=== PATIENT | female | born 1940 | race Caucasian/White ===

== ENCOUNTER → 2018-11-07 05:00 | Outpatient (REF) | payer MEDICARE, SELFPAY ==
[2018-11-07 09:01] LABS: Hematocrit 41.5 % (37-47); Hemoglobin 13.5 g/dl (12.0-15.0); Mean Corp Hgb Conc 32.5 g/gl (32-36); Mean Corpuscular Hgb 28.9 pg (27.0-32.0); Mean Corpuscular Volume 88.9 fL (81-99); Mean Platelet Vol. 10.4 fl (6.2-12.0); Platelet Count 247 K/mm3 (150-450); RBC Distribution Width CV 15.9 % (11.6-14.6); RBC Distribution Width SD 51.6 fl (35.1-43.9); Red Blood Count 4.67 M/mm3 (4.2-5.4); White Blood Count 8.5 K/mm3 (4.4-11.0)
[2018-11-07 09:03] LABS: Scan Indicated on CBC? Y/N NO
[2018-11-07 09:17] LABS: BUN 30 mg/dL (7-18); Creatinine, Serum 0.89 mg/dL (0.55-1.02); Glucose 99 mg/dL (74-106)
[2018-11-07 09:18] LABS: Anion Gap 6 (5-15); BUN/Creat Ratio 33.6 RATIO (10-20); Calcium,Total 8.9 mg/dL (8.5-10.1); Chloride 103 mmol/L (98-107); EST Glomerular Filtration Rate 65 mL/min (>60); Est Glom Filt Rate - Afr Amer 78 mL/min (>60); Ferritin 77 ng/mL (8-252); Potassium 4.6 mmol/L (3.5-5.1); Sodium Level 140 mmol/L (136-145)
== END ==
LOC: OLS.ACW200 05:00
PROVIDERS: Visit Provider Internal Medicine
DX: L03.114 Cellulitis of left upper limb (principal); M62.81 Muscle weakness (generalized); I10 Essential (primary) hypertension; F33.1 Major depressive disorder, recurrent, moderate; M12.9 Arthropathy, unspecified
CPT/HCPCS: 36415; 80048; 82728; 85027

== ENCOUNTER → 2018-12-18 02:00 | Outpatient (REF) | payer MEDICARE, SELFPAY ==
[2018-12-18 09:04] LABS: Color, Urine Yellow (Yellow); Glucose, Dipstick Normal (Normal); Ketone-Dipstick Negative (Negative); Leukocyte Esterase-Dipstick 500 /ul (Negative); Nitrite-Dipstick Positive (Negative); Occult Blood-Urine 250 /ul (Negative); Protein-Dipstick 100 mg/dl (Negative); Specific Gravity, Urine 1.015 (1.002-1.030); Urine Bilirubin Dipstick Negative (Negative); Urine Clarity Cloudy (Clear); Urine Urobilinogen 1 mg/dl (Normal)
--- OUTSIDE RECORDS SUMMARY | 2019-02-19 04:57 | XMS RPT_ITS ---
:1940 Author Organization [place] Care Team Providers Name Role Phone SHANNON SELLERS (RES) Admitting Unavailable SHANNON SELLERS (RES) Attending Unavailable ROMAN PERALTA Consulting Unavailable Yosef Macias Attending Unavailable Yosef Macias Attending Unavailable PROBLEMS PROBLEMS DATE TYPE CONDITION / CODE ATTENDING STATUS SOURCE 12/09/2018 Unknown L03.114 - Cellulitis Spoljaric, Active Abhishek of left upper limb / [facility] L03.114(ICD-10) Hospital Repository 12/09/2018 Unknown M62.81 - Muscle Spoljaric, Active [place] weakness [facility] (generalized) / Hospital M62.81(ICD-10) Repository 12/09/2018 Unknown I10 - Essential Spoljaric, Active Abhishek (primary) [facility] hypertension / Hospital I10(ICD-10) Repository 12/09/2018 Unknown M15.0 - Primary Spoljaric, Active [place] generalized [facility] (osteo)arthritis / Hospital M15.0(ICD-10) Repository 12/09/2018 Unknown F33.1 - Major Spoljaric, Active [place] depressive disorder, [facility] recurrent, moderate Hospital / F33.1(ICD-10) Repository 12/09/2018 Unknown M12.9 - Arthropathy, Spoljaric, Active Abhishek unspecified / [facility] M12.9(ICD-10) Hospital Repository 08/25/2018 Active Pain in left wrist / ANTONIA, Active [facility] M25.532(ICD-10) [facility] (RES) [facility] Other [place] Rep[facility] 08/25/2018 Active Effusion, left wrist ANTONIA, Active [facility] / M25.432(ICD-10) [facility] (RES) [facility] Other [place] Rep[facility] 08/25/2018 Active Essential (primary) ANTONIA, Active [facility] hypertension / [facility] (RES) [facility] Other I10(ICD-10) [place] [facility] Rep[facility] 08/25/2018 Active Disorientation, ANTONIA, Active [place] unspecified / [facility] (RES) Clinic Other R41.0(ICD-10) [place] Rep[facility] 08/25/2018 Active Other malaise / ANTONIA, Active [place] R53.81(ICD-10) [facility] (RES) [facility] Other [place] Repository 08/25/2018 Active Cellulitis of left ANTONIA, Active [place] upper limb / [facility] (RES) Clinic Other L03.114(ICD-10) [place] Repository 08/24/2018 Active Urge incontinence / ANTONIA, Active [place] N39.41(ICD-10) [facility] (RES) Clinic Other [place] Rep[facility] 08/24/2018 Active Bilateral primary ANTONIA, Active [place] osteoarthritis of [facility] (RES) Clinic Other knee / M17.0(ICD-10) [place] [facility] Rep[facility] 08/21/2018 Active Other general ANTONIA, Active Scal[place] symptoms and signs / [facility] (RES) Clinic Other R68.89(ICD-10) [place] [facility] Rep[facility] 08/21/2018 Active Acute cystitis ANTONIA, Active Scal[place] without hematuria / [facility] (RES) Clinic Other N30.00(ICD-10) [place] Repository PROCEDURES PROCEDURES No Procedure Records FoundRESULTS RESULTS URINALYSIS, ROUTINE Collected: 12/18/2018 Status: F Source: ABH[place]HEK (DIPSTICK) 2:00 AM [facility] REPOSITORY Order Comment: How was Urine Obtained? CLEAN CATCH TYPE CODE TESTS RESULT OUT OF RANGE REFERENCE UNITS LAB L400.3000 Yellow COLOR Normal Yellow LAB L400.3050 Clear Normal CLARITY Cloudy LAB L400.3200 Normal mg/dl Normal GLUCOSE, UR Normal LAB L400.3300 Negative mg/dL Normal BILIRUBIN URINE Negative LAB L400.3400 Negative mg/dl Normal KETONE UR Negative LAB L400.3465 1.002-1.030 Normal SP.GR. DIPSTX 1.015 LAB L400.3550 5.0 - 8.0 pH UR Normal 8.0 LAB L400.3600 Negative mg/dl High PROT DIPSTX 100 LAB L400.3700 Normal mg/dl High 1 UROBILI LAB L400.3750 Negative High NITRITE UR Positive LAB L400.3780 Negative /ul High OCCULT BLOOD-UR 250 LAB L400.3800 Negative /ul High LEUK ESTERASE 500 Performed By: #### L400.2011 #### [facility] [address] [place], [place], [address] Observed: 12/18/2018 Status: F Source: ABH[place] CULTURE, URINE 2:00 AM [facility] REPOSITORY Urine Culture ORGANISM 1: Mixed Gram Pos AND Gram Neg Org [place] Count 50,000-80,000 MIX CULTURE Mixed contaminants. Submit a new specimen if indicated. Performed By: #### M100.0650 #### [facility] [address] [facility] [place], [address] CBC-COMPLETE BLOOD CNT Collected: 11/07/2018 Status: F Source: [place] NO DIFF 7:25 AM [facility] REPOSITORY Order Comment: 210-2 TYPE CODE TESTS RESULT OUT OF RANGE REFERENCE UNITS LAB L100.1000 4.4-11.0 K/mm3 Normal WBC 8.5 LAB L100.1200 4.2-5.4 M/mm3 Normal RBC 4.67 LAB L100.1300 12.0-15.0 g/dl Normal HGB 13.5 LAB L100.1400 37-47 % Normal HCT 41.5 LAB L100.1500 81-99 fL Normal MCV 88.9 LAB L100.1600 27.0-32.0 pg Normal MCH 28.9 LAB L100.1700 32-36 g/gl Normal MCHC 32.5 LAB L100.1810 11.6-14.6 % High RDW CV 15.9 LAB L100.1820 35.1-43.9 fl High RDW SD 51.6 LAB L100.1900 150-450 K/mm3 Normal PLT 247 LAB L100.2000 6.2-12.0 fl Normal MPV 10.4 Performed By: #### L100.0500 #### [facility] [address] [facility] [place], [place], [address] BASIC METABOLIC Collected: 11/07/2018 Status: F Source: ABHIS[place] PROFILE (BMP) 7:25 AM [facility] REPOSITORY Order Comment: 210-2 TYPE CODE TESTS RESULT OUT OF RANGE REFERENCE UNITS LAB L501.0100 74-106 mg/dL Normal GLU 99 Result Comment: Please note revised GLUCOSE reference range effective 2017. LAB L501.1000 7-18 mg/dL High BUN 30 LAB L501.1100 0.55-1.02 mg/dL Normal CREAT,SERUM 0.89 Result Comment: The validity of the calculated GFR AND GFRAA in patients over 70 years has not been determined. Clinical correlation is essential. LAB L501.1110 >60 mL/min Normal EST GFR 65 Result Comment: Non- GFR Calc LAB L501.1115 >60 mL/min Normal EST GFR - AA 78 Result Comment: GFR Calc LAB L501.1300 10-20 RATIO High BUN/CRE 33.6 LAB L501.2200 8.5-10.1 mg/dL CA Normal 8.9 LAB L501.5300 136-145 mmol/L NA Normal 140 LAB L501.5600 3.5-5.1 mmol/L K Normal 4.6 LAB L501.5900 98-107 mmol/L CL Normal 103 LAB L501.6100 21.0-32.0 mmol/L Normal CO2 31.0 LAB L501.6200 5-15 Normal GAP 6 Performed By: #### L500.2500, L503.6550 #### [facility] [address] [facility] [place], [address] FERRITIN Collected: 11/07/2018 Status: F Source: [place] 7:25 AM [facility] REPOSITORY Order Comment: 210-2 TYPE CODE TESTS RESULT OUT OF RANGE REFERENCE UNITS LAB L503.6550 8-252 ng/mL Normal FERRITIN 77 Performed By: #### L500.2500, L503.6550 #### [facility] [address] [facility] [place], [address] CNCO Observed: 08/30/2018 Status: COMPLETED Source: [place] 12:00 AM CLINIC OTHER CAMPUS REPOSITORY Letter Text August 30, 2018 Shola Castaneda [address] [facility] [address] Dear Ms. Castaneda, Thank you for choosing [facility] for your medical care. To help reduce healthcare costs, it is important for us to collect co-payments at the time of service. We are sorry we missed you when you were here on 08/21/2018. According to your insurance company, you are responsible for a co-payment of $1750.00. Please mail your check or money order, payable to [facility] along with the stub below, in the enclosed envelope. If you would like to pay with your credit card, please call [phone] for assistance. Again, thank you for choosing [facility]. Sincerely, Akira Reaves Patient Occupational Therapy Department Chair Please detach and return in the enclosed envelope. Patient Name: Shola Castaneda EMPI Number: [id number] Date of Service: 08/21/2018 Co-Pay Due: $1750.00 Amount Enclosed: $ .__ Please make checks payable to [facility]. NURSING PROG Observed: 08/26/2018 Status: COMPLETED Source: [place] 7:45 PM CLINIC OTHER CAMPUS REPOSITORY O ID: [id number] Author: Luzma (Rn) MARCEL Guerrero Service: Nursing Author Type: Registered Nurse Type: Nursing Progress Note Filed: 08/26/2018 9:12 PM Note Text: Nursing Progress Note Patient Name: Shola Castaneda Patient Location[facility]/[id number] 1944- pt to be transferred to [facility]. Transport here to p/u pt. Pt confused/agitated, refusing transport, states no- one can make her leave attempts to reason with pt unsuccessful, states she wants to go home and make an appointment with doctor she saw yesterday, shows card with Dr Fisher name. Hospitalist/NOM, ANM, notified of pt refusal for transport. Called Daughter, ginna, pt hangs up on her, states she was swearing at her. Dr Whalen at bedside, attempts to reason with pt , unsuccessful. Pt eventually agrees to transport. Left unit at 2054 via cart with personal. Daughter and Dr Fisher notified. This note was completed by: Luzma Guerrero RN NURSING PROG Observed: 08/26/2018 Status: COMPLETED Source: [place] 7:32 PM [facility] REPOSITORY HNO ID: [id number] Author: Constanza Azar (Rn) MARCEL Andrews Service: (none) Author Type: Registered Nurse Type: Nursing Progress Note Filed: 08/26/2018 7:35 PM Note Text: Nursing Progress Note Patient Name: Shola Castaneda Patient Location: [place] [address]/[id number] Daily Note: 1914 Ginna daughter updated regarding [facility] Transportation pick-up now scheduled for 1944 per [facility]. 193 Pt. Having high anxiety and expressing she is anxious over leaving late to go to [facility]. This note was completed by: Constanza Andrews RN THERAPY NT Observed: 08/26/2018 Status: COMPLETED Source: [place] 3:03 PM [facility] REPOSITORY HNO ID: [id number] Author: Ashley (Pt) Cuauhtemoc Service: Physical Therapy Author Type: Physical Therapist Type: Therapy (PT/OT/Speech/Resp) Filed: 08/26/2018 3:03 PM Note Text: PHYSICAL THERAPY MISSED VISIT SERVICE DATE: 08/26/2018 SERVICE TIME: 1502 to 1502 ROOM: [place] [address] Attempted Treatment. Patient not seen due to (active discharge orders). Will re-attempt if discharge planning changes. SIGNATURE: Ashley Posadas, PT PATIENT NAME: Shola Castaneda DATE: August 26, 2018 TIME: 3:03 PM NURSING PROG Observed: 08/26/2018 Status: COMPLETED Source: [place] 2:03 PM [facility] REPOSITORY HNO ID: [id number] Author: Constanza Jaramillo) MARCEL Andrews Service: (none) Author Type: Registered Nurse Type: Nursing Progress Note Filed: 08/26/2018 2:50 PM Note Text: Nursing Progress Note Patient Name: Shola Castaneda Patient Location: [place] [address]/[id number] Daily Note: 1402 Update given to daughter regarding approximate time for discharge. Transportation set for 5 pm today. 1450 Attempted to call report called to Jillian RN, but unable to reach. [place] stated RN will be back in approx. 15 min. Will call back. This note was completed by: Constanza Andrews RN CASE MANAGEM Observed: 08/26/2018 Status: COMPLETED Source: [place] 11:35 AM [facility] REPOSITORY HNO ID: [id number] Author: Rosa Gomez (Sw) Service: Care Management Author Type: Corn Popper Type: Care Mgt Progress Note Filed: 08/26/2018 11:59 AM Note Text: CARE MANAGEMENT DISCHARGE NOTE SERVICE DATE: 08/26/2018 SERVICE TIME: 11:36 AM LOS: 4 days Admission Date: 08/21/2018 DISCHARGE ARRANGEMENT (list agency and phone number) [facility] facility: Was an expedited discharge program used? No Provider: Jillian CAREGIVER ASSESSMENT: Caregiver is ready, willing and able to meet the patient's needs as recommended by the inter-professional team? Yes Patient's transition needs and plan for meeting these needs: Pt d/c to SNF where her needs will be met. Does the patient have an acute stroke diagnosis, or has the patient had a stroke during this admission? No HANDOFF COMMUNICATION: Primary Care Physician: Jerry Mclaughlin TRANSPORTATION ARRANGEMENTS: Mode of Transportation: Ambulance Transportation Agency and Phone #: [facility] ambulance ( [facility] ) [phone] / [phone]. Date of Trip: 08/26/2018 Type of Service: BLS Non-emergency Is Patient Medicaid Pending: No Discussion of financial coverage occurred with POA and Family . Sod Cutter Location: [facility], 2S, 217-2 Destination: [facility] Financial Care Management Responsibility: None Estimated Charge: n/a Approving Copper Plater: n/a ADDITIONAL CONTACT RESOURCES: n/a D/c orders received for pt to d/c to SNF. Pt has been accepted at [facility]. Sw spoke with pt's dtr, Ginna, who is agreeable with d/c. Transportation arranged via [facility] ambulance at 5pm. IM letter explained and copy given to pt. No additional identified skilled needs nor questions at this time. Summary of care sent to PCP and SNF via [employer]. SIGNATURE: DANUTA Singh, DIRECTOR SOCIAL WELFARE PATIENT NAME: Shola Castaneda DATE: August 26, 2018 TIME: 11:35 AM PAGER/CONTACT #: [phone] CONSULT PROG Observed: 08/26/2018 Status: COMPLETED Source: [place] 11:03 AM CLINIC OTHER CAMPUS REPOSITORY HNO ID: [id number] Author: Juan Christianson MD Service: Infectious Disease Author Type: Physician Type: Consult Progress Note Filed: 08/26/2018 11:04 AM Note Text: INFECTIOUS DISEASE PROGRESS NOTE Patient Name: Shola Castaneda INTERVAL HISTORY: AF>24 hrs, Tmax 99F. Pain is better. No new complaints. Stable on PO Omnicef. ROS checked in details. All qs answered. Patient Active Hospital Problem List: Cellulitis of left hand (08/21/2018) Essential hypertension (08/21/2018) Debility (08/21/2018) Delirium (08/24/2018) ASSESSMENT: 1. Leukocytosis, likely due to #2 and #3. 2. 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 Normal uric acid does not exclude acute gouty arthritis. She does not have any signs of infection. 3. Suspected recurrent urinary tract infection based on the UA. Urine cultures are normal urogenital carol ann. 4. Neurogenic bladder and incontinence history for which she has a bladder stimulator, but there is no battery in the stimulator per the daughter. 5. Low-grade fevers, likely due to left wrist inflammatory arthritis. 6. Hypertension. 7. Severe osteoarthritis of the knees and wheelchair-bound. ? RECOMMENDATIONS: 1. Continue Omnicef to be given for 3 more days. 2. Consider trial of empiric steroid short course. 3. Follow counts, temps and cultures MEDICATIONS: reviewed. Current hospital medications: predniSONE 40 mg tab(s) (DELTASONE) 40 mg ORAL DAILY lisinopril 40 mg tab(s) (ZESTRIL, PRINIVIL) 40 mg ORAL DAILY cefdinir 300 mg (OMNICEF) 300 mg ORAL BID hydroCHLOROthiazide 25 mg tab(s) (HYDRODIURIL, ESIDRIX) 25 mg ORAL DAILY amLODIPine 10 mg tab(s) (NORVASC) 10 mg ORAL DAILY mirabegron 50 mg ER 24 hour tablet (MYRBETRIQ) 50 mg ORAL DAILY pantoprazole DR 40 mg tab(s) (PROTONIX) 40 mg ORAL DAILY (6 AM) heparin 5,000 Units injection 5,000 Units SUBCUTANEOUS q 12 H oxyCODONE-acetaminophen 5-325 mg 1-2 tablet (PERCOCET) 1-2 tablet ORAL q 6 H PRN hydrALAZINE 10 mg in NaCl 0.9% 10 mL (APRESOLINE) 10 mg INTRAVENOUS q 6 H PRN PHYSICAL EXAM: Vital signs: BP 153/87 Pulse 84 Temp 37 ?C (98.6 ?F) (Oral) Resp 18 Ht 162.6 cm (5' 4) Wt 90.7 kg (200 lb) SpO2 96% BMI 34.33 kg/m? Temp (48hrs), Av.9 ?C (98.5 ?F), Min:36.7 ?C (98.1 ?F), Max:37.2 ?C (99 ?F) General: alert, oriented, NAD Lungs: bilaterally clear to auscultation Heart: regular rate and rhythm Abdomen: soft, non tender, non distended, BS+ Extremities: no edema Left wrist and hand, there is mild tenderness on range of motion of the left wrist, but there is minimal erythema and warmth at the site which was marked on admission. No obvious wounds or skin breakdown. No swollen joints No rashes No joint inflammation Neck supple Lines ok No CVAT Labs: Recent Labs 08/26/18 0412 08/25/18 0507 08/24/18 0532 WBC 8.41 8.94 12.90* HB 12.4 12.6 12.1 HCT 40.1 40.7 39.9 PLT 322 275 251 NA 137 141 140 K 4.0 3.5* 4.3 CHLOR 99 103 103 CO2 27 23 26 BUN 20 16 13 CREAT 0.73 0.71 0.79 Microbiology data: reviewed Imaging data: reviewed Juan Christianson MD Pager: CNDS Observed: 08/26/2018 Status: COMPLETED Source: [place] 10:15 AM CLINIC OTHER CAMPUS REPOSITORY HNO ID: [id number] Author: Connie Paez) Lean Manager Service: Hospital Medicine Author Type: Nurse Practitioner Type: Discharge Summaries Filed: 08/26/2018 10:40 AM Note Text: Attestation signed by Ela Rivas at 09/03/2018 3:30 PM Reviewed. Ela Rivas MD DISCHARGE SUMMARY PATIENT NAME: Shola Castaneda ADMISSION DATE: 08/21/2018 DISCHARGE DATE: 08/26/2018 ATTENDING PHYSICIAN: Shannon Sellers Code Status: Not on file Highest Readmission Risk Score: 18 The 30 day readmissions risk score is derived from an internally validated risk model which evaluates patient level characteristics, utilization history, medication orders and lab results up until the day of discharge. Patients with a score of 40 or above are considered highest risk for readmission. Specific patient level drivers will be listed at the bottom of the summary. REASON FOR HOSPITALIZATION: Pain and swelling of left wrist, UTI DIAGNOSIS: Active Problems: Cellulitis of left hand Essential hypertension Debility Delirium Resolved Problems: Urinary tract infection without hematuria Pain and swelling of left wrist OPERATIONS DURING HOSPITALIZATION: None PROCEDURES DURING HOSPITALIZATION: No procedures performed HOSPITAL COURSE: This is a 78 year old female with past medical history of severe osteoarthritis, HTN and urinary incontinence who presents to the ER with the complaint of left wrist pain and swelling which started this morning. The patient is wheel chair bound due to severe knee and ankle arthritis. When she woke up this morning her left wrist was red and swollen, she denies any fevers or chills, she denies any falls. On presentation to the ER she was found to have an elevated wbc count, she was also found to have a UTI. She was started on vancomycin and ceftriaxone for concern of septic joint. Dr peralta from orthopedics was consulted by the ER. Of note, she has a history of urinary incontinence and has a bladder stimulator in place which is currently out of battery. She follows up with urology as outpatient and has frequent UTIs. She has a history of high blood pressure but has not taken her home medications in 6 months. She had elevated BP in the 220s systolic which came down after starting her home BP medications. Evaluated by orthopaedics who suspected cellulitis and recommended continuing with IV antibiotics. ID felt left wrist inflammatory arthritis vs. gout/pseduogout. Recommended empiric steroid course, PO Omnicef until 08/28 and supportive measures with RICE. Evaluated by PT/OT who recommended discharge to SNF. Family requested geropsych eval which unfortunately is not available here and [facility]. Psych recommended outpatient follow up. The patient was discharged to SNF, hemodynamically stable and in improved condition. RX'ed with short course of oral steroids and Omnicef. Will follow up with PCP in one week, with urology at convenience to replace bladder stimulator battery and with psychology as recommended. All questions of the patient were addressed and answered. She was comfortable with the plan of care. Active Hospital Problems as of 08/26/2018 Noted - Resolved Essential hypertension 08/21/2018 - Present Current Assessment AND Plan Assessment: Patient's daughter states patient is non compliant with home BP meds and had not taken in 6 months BP significantly elevated throughout hospitalization Norvasc increased from 5 to 10 mg and lisinopril was increased to 40 mg Noted improvement after adjusting meds PLAN: Continue lisinopril, norvasc, HCTZ Will continue to monitor BP to see if she needs further titration or additional medications Continue hydralazine prn for SBP>180 Delirium 08/24/2018 - Present Current Assessment AND Plan Assessment: Family reports patient has short term memory issues Likely underlying dementia present- has not had cognitive assessment Patient with agitation and delirium at night Likely from hospital setting in combination with infectious process PLAN: Family requesting geropsych evaluation unfortunately unavailable here OP f/u with Dr. Fisher, note pending Debility 08/21/2018 - Present Current Assessment AND Plan Assessment: Wheelchair bound at baseline secondary to severe osteoarthritis Daughter states that patient has become more decompensated recently and she is having more difficulty with her care at home PLAN: PT/OT evaluations --> Recommend SNF CM for discharge planning Cellulitis of left hand 08/21/2018 - Present Current Assessment AND Plan Assessment: Presented to the hospital with left wrist pain, swelling and erythema Orthopedics consulted for possible joint aspiration to r/o septic joint, however they feel that there is not enough accumulation of fluid to perform Fevers and leukocytosis resolved Blood cultures negative NGTD CRP mildly elevated at 1.8, ESR 9, Uric acid WNL XR L wrist: Degenerative changes with no acute process seen US negative for DVT ID following PLAN: Oral omnicef until 08/28 per ID recommendations Continue supportive care RICE Percocet prn for pain Continue to follow temps, WBC, blood cultures Resolved Hospital Problems as of 08/26/2018 Noted - Resolved Urinary tract infection without hematuria 08/21/2018 - 08/25/2018 Pain and swelling of left wrist 08/21/2018 - 08/25/2018 Transitions of Care Critical Issues: SPECIALIST FOLLOW-UP: Urology for bladder stimulator battery exchange LABS AND PROCEDURES PENDING AT DISCHARGE: No pending results. CONSULTING TEAMS DURING HOSPITALIZATION: Infectious Disease: Dr. Christianson Surgery : Orthopaedics Psychology: Dr. Fisher PATIENT CONDITION AT DISCHARGE: Stable DISCHARGE DISPOSITION: [facility] Facility Discharge Physical Exam: VITAL SIGNS: BP 153/87 Pulse 84 Temp 37 ?C (98.6 ?F) (Oral) Resp 18 Ht 162.6 cm (5' 4) Wt 90.7 kg (200 lb) SpO2 96% BMI 34.33 kg/m? GENERAL: Alert, no distress, cooperative SKIN: Skin color, texture, turgor normal. No rashes or lesions. HEAD/SINUSES: No significant findings EYES: PERRLA, EOMI OROPHARYNX: Lips, mucosa, and tongue normal. Teeth and gums normal. Oropharynx normal. NECK: Supple, No thyromegaly BACK: Back symmetric, Normal curvature, ROM normal LUNGS: Lungs clear to auscultation, Good diaphragmatic excursion CARDIAC: RRR; no rubs, murmurs, or gallops ABDOMEN: Abdomen soft, non-tender, BS normal, No masses or organomegaly EXTREMITIES: Extremities normal, no deformities, edema, clubbing or skin discoloration. Good capillary refill., No ulcers NEURO: Grossly normal cognition, motor function, and cranial nerves III-XII PULSES: 2+ radial, 2+ dorsalis pedis INFORMATION PROVIDED TO PATIENT: No additional information DIET: Resume pre-hospital diet ACTIVITY: Resume pre-hospital activity WOUND/SURGICAL SITE CARE: None ALLERGIES Allergen Reactions - Adhesive Rash, Itching - Latex Unknown DISCHARGE MEDICATION: Current Discharge Medication List START taking these medications hydroCHLOROthiazide (HYDRODIURIL, ESIDRIX) 25 mg Take 25 mg by mouth once daily. predniSONE (DELTASONE) 40 mg Take 40 mg by mouth once daily. Qty: 6 tablet Refills: 0 cefdinir (OMNICEF) 300 mg Take 300 mg by mouth twice daily. Qty: 7 capsule Refills: 0 meloxicam (MOBIC) 7.5 mg Take 7.5 mg by mouth once daily. CONTINUE these medications which have CHANGED lisinopril (ZESTRIL, PRINIVIL) 40 mg Take 40 mg by mouth once daily. amLODIPine (NORVASC) 10 mg Take 10 mg by mouth once daily. CONTINUE these medications which have NOT CHANGED Magnesium Oxide 1 tablet Take 1 tablet by mouth once daily. melatonin 10 mg Take 10 mg by mouth daily at bedtime. aspirin, enteric coated (ASPIRIN, ENTERIC COATED) 81 mg Take 81 mg by mouth once daily. ferrous sulfate 325 mg Take 325 mg by mouth daily with breakfast. fluticasone (FLONASE) 1 [place] Use 1 [place] in each nostril once daily. mirabegron (MYRBETRIQ) 50 mg Take 50 mg by mouth once daily. pantoprazole DR (PROTONIX) 40 mg Take 40 mg by mouth once daily. STOP taking these medications aspirin/acetaminophen/caffeine (EXCEDRIN EXTRA STRENGTH ORAL) 2 tablets Comments: Reason for Stopping: omeprazole (PriLOSEC) 20 mg Comments: Reason for Stopping: Follow Up Appointments Follow-Up Appointment Hospital follow up When: In 1 week Patient/Parents to call for appointment?: Yes Jerry Beltran Skyler [phone] [id number] [place] [address] PCP Requested Referral Follow-Up Appointment Hospital follow up, bladder stimulator exchange With: Urology When: In 2 weeks Patient/Parents to call for appointment?: Yes The patient's risk for 30-day readmission is determined using the following contributing factors: Pt variables contributing to increased readmission risk: 20 Most Recent BUN Result 10 Active Medication Orders 9.6 First Resulted Calcium During Admission 1 Previous ED Visit (6 mos.)? 1 Number of Previous ED Visits (6 mos.) 1 Insurance - Medicare 1 Active Anticoagulant TIME OF CARE: Discharge Management: I personally spent greater than 30 minutes involved in the discharge management of this patient. Total Discharge Time: 32 minutes SIGNATURE: Connie Abarca APRN.CNP PAGER/CONTACT #: [phone] DATE: August 26, 2018 TIME: 10:17 AM CBC Collected: 08/26/2018 Status: F Source: [place] 4:12 AM [facility] OTHER CAMPUS REPOSITORY TYPE CODE TESTS RESULT OUT OF REFERENCE UNITS RANGE LAB WBC 3.70-11.00 k/uL WBC 8.41 LAB RBC 3.90-5.20 m/uL RBC 4.86 LAB HGB 11.5-15.5 g/dL Hemoglobin 12.4 LAB HCT 36.0-46.0 % Hematocrit 40.1 LAB MCV 80.0-100.0 fL MCV 82.5 LAB MCH 26.0-34.0 pG Low MCH 25.5 LAB MCHC 30.5-36.0 g/dL MCHC 30.9 LAB RDWCV 11.5-15.0 % RDW-CV High 18.1 LAB PLTCT 150-400 k/uL Platelet Count 322 LAB MPV 9.0-12.7 fL MPV 11.1 Performed By: #### CBC, BMP #### [facility] [address] [place] [address] BASIC METABOLIC PANL Collected: 08/26/2018 Status: F Source: [place] 4:12 AM [facility] OTHER CAMPUS REPOSITORY TYPE CODE TESTS RESULT OUT OF REFERENCE UNITS RANGE LAB GLU 74-99 mg/dL High Glucose 114 Result Comment: The [place] [employer] (ADA) provides guidance for cutoff values for fasting glucose and random glucose. The ADA defines fasting as no caloric intake for at least 8 hours. Fas ting plasma glucose results between 100 to 125 mg/dL indicate increased risk for diabetes (prediabetes). Fasting plasma glucose results greater than or equal to 126 mg/dL meet the criteria for diagnosis of diabetes. In the absence of unequivocal hyperglycemia, results should be confirmed by repeat testing. In a patient with classic symptoms of hyperglycemia or hyperglycemic crisis, random plasma glucose results greater than or equal to 200 mg/dL meet the criteria for diagnosis of diabetes. Reference: Standards of Medical Care in Diabetes 2016, [place] [employer]. Diabetes Care. 2016.39(Suppl 1). LAB BUN 7-21 mg/dL BUN 20 LAB CRET 0.58-0.96 mg/dL Creatinine 0.73 LAB NA 136-144 mmol/L Sodium 137 LAB K 3.7-5.1 mmol/L Potassium 4.0 LAB CL 97-105 mmol/L Chloride 99 LAB CO2 22-30 mmol/L CO2 27 LAB AGAP 9-18 mmol/L Anion Gap 11 LAB CA 8.5-10.2 mg/dL Calcium, Total 9.1 LAB GFRAA eGFR- Amer. >60 LAB GFRNAA . eGFR-All Other Races >60 Result Comment: eGFR (Estimated GFR) Units of measure: mL/min/1.73 meters squared eGFR is derived from the reexpressed MDRD Study equation using the following parameters: serum creatinine, age, gender and race. The creatinine assay has been calibrated to be traceable to IDMS. An eGFR <60 mL/min/1.73m2 for >3 months is consistent with chronic kidney disease. Refer to KDOQI guidelines for clinical interpretation. In patients with unstable renal function, e.g. those with acute kidney injury, the eGFR may not accurately reflect actual GFR. Performed By: #### CBC, BMP #### [facility] [address] [place] [address] CONSULT Observed: 08/25/2018 Status: COMPLETED Source: [place] 6:15 PM CLINIC OTHER CAMPUS REPOSITORY O ID: [id number] Author: Constanza Fisher Service: Psychology Author Type: Psychologist Type: Consults Filed: 08/26/2018 10:54 AM Note Text: PSYCHOLOGY CONSULT SERVICE INITIAL CONSULT NOTE SENSITIVE INFORMATION - NOT FOR GENERAL RELEASE SERVICE DATE: August 25, 2018 SERVICE TIME: 6:10 - 7:35 August 26, 2018 Collateral with daughter - 9:50 to 10:40 Reason for Consult: Dementia assessment, agitation and confusion at night, family requesting psych consult ASSESSMENT: Omer has been admitted for the following: Patient Active Hospital Problem List: 1. Essential hypertension POA: Unknown 2. Cellulitis of left hand POA: Yes 3. Debility POA: Unknown 4. Delirium POA: Unknown Ms. Castaneda was seen at bedside. She was alert and oriented to person, place, and situation. She used the patient information board to provide the date, month, and day. She was unable to come up with the year. The purpose of the evaluation was explained and Ms. Castaneda gave permission to continue and stated that her memory has gone to the dogs. She is 78 years old and reports that she has been living [facility] with her daughter Ginna due to not being able to access her home with her wheelchair. She states this has been very stressful as they live in a one room and have different habits. Ms. Castaneda states that Depression - acknowledges signifcant symptoms of depression including anhedonia, crying spells and hoplessness. Consider medical intervention. Cognitive screening - Severe deficits noted across all areas assessed. (see below) 05/25 (WNL >=26/30). Suspect underlying dementia is progressing; however, has had infection and is prone to delirium. important to reassess. Understanding of medical condition DIAGNOSIS: AXIS I: Delirium Neurocognitive Deficit Dysthymia PLAN: 1. In this environment, Ms. Castaneda is not displaying/acknowledging severe enough symptoms without collateral information to refer to geriatric inpatient treatment. *She does acknowledge memory deficits but is not able to describe the issues she is having. Referral to neurology and neuropsychology for further assessment of cognitive deficits, diagnostic clarification, prognosis, intervention and treatment. *She does state that she does not see the same things the same as her daughters. She is unable to describe her experience very well. 2. This evening, Pt did not give permission for me to talk to either of her daughters. Will attempt permission again in the AM as collateral information would be helpful. 3. Ensure that the SNF she is discharged to has access to behavioral health services - onsite would be best. 4. Understand concern related to anesthesia for the surgery to replace the battery pack for the stimulator. Explore options reduce chance of UTI and associated delirium which worsens her mental status and it takes longer to recover and she may not fully recover after each new infection. 5. She is pleased with this new external catheter. She has not wanted to leave the house due to incontinence and the embarrassment and hopes this will allow her more freedom. 6. She is acknowledging significant symptoms of depression and daughter confirms. Consider medical intervention. Thank you for the opportunity to participate in Shola Castaneda's care. COLLATERAL INFORMATION: Have noticed that perception of time, people, spaces. I will see her every day, but she will think she has not seen her in weeks. She is by herself for a few hours while moving her belongings to the new handicapped accessible apartment and will believe that no one has seen her in days, but it will be just hours. Gets fixated on ideas such as sorting her books. Have noticed some paranoia - believes hiding things from her. Used to only happen when she was having UTI. Wrist hurting. No fall - logical, because could not have gotten up. Sunday asked to go to ED in hospital, could not recall having asked to come to the hospital and wanted to call police to take her home. Requested Sr. Assessment at [facility] and could not get one done there. Don't want her to be lost in the system again. Used to see neurologist in [place], [place] when she could get in a car, but needs transport at $[address] Wakefield She refuses to pay and medical trust has been tied up after her mother's . When in [place] - it was a poor experience all around 3 story house in [place], bathroom upstairs, wheel chair bound - $80,000 to handicap accessible [place] [facility]aying [facility] since March 2017. All accessible. $100/day vs. $400/day at facility. Medical trust was on hold in estate IRS audit for three years after shola Castaneda's mother . Goal is to go home at some point when stronger. Get motorized wheel chair and get stronger so can move back into home. 2 weeks ago mental status changed dramatically. Suspected UTI. Ex- legally . Haven't been living together, but he has been active in her life and care. He has been helping move her items from the large [facility]. Cat has been at the house and staying there. During this admission Too many loud people in the room Sunday - need to go to lunch with Grandmother and Great Aunt - both for a long time Sunday - left for an hour and then she thought had not seen daughter in days Sunday afternoon - obsessed with brushing the wrinkles out of her blankets. If something throws her off track - it is very difficult for her to get back on track. When sees the doctors that she knows she is more fixated on social reasons Have not been able to keep focus on DrJackson Hallman without using MyChart to prep the doctor with information Complete finances for her and have POA. Daughter has been doing finances for five years. Ginna does have health care power of claims attorney as well. She did not know her date when she came in. In addition, she was not able to rate her pain on a numeric scale. Still can not. 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 She has seemed like she is in pain, but does not ask for pain medication. Seems to be in pain, too, but does not ask. Will mention itching. Unsure as to whether she can She does not do her own medication at home. She has not been able to do this for a long time. Have scheduled Senior Assessment probably six times, but she has refused to go due to not feeling well. She has not been able to participate in her own health care at home, will work in a facility when scheduled to participate. 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 No social contact, but did do PT. Walked out with cane and then sat on couch and all went down hill from there. She has not participated since then. At [facility] - she had a poor experience. Difference in expectations. Replace the battery pack in stimulator. Had severe difficulties with the anesthesia. Very reluctant to do this without overnight stay. Seems to be better able to advocate for this plan. Does believe that mother is depressed. She has bouts of crying, does not leave the house due to urinary issues, three of her best friends and step brother and too embarrassed to go due to urinary issues. Seems irritable. PSYCHIATRIC ROS: Depression: + Depressed mood, + Decreased Interests, + Decreased energy, + Decreased Concentration, + Hopelessness, and increased appetite with no suicidal thoughts, intent or plan. Janelle: Denies any history of hypomanic or manic episodes. Psychosis: states that she is not sure what she sees as her daughters often are confused and say that what she sees is not there BIB: Difficulty controlling worry, Restless / Keyed up, Irritable, Trouble concentrating and Muscle tension Panic: Denies any symptoms of panic OCD: Denies any symptoms of OCD. PTSD: Denies any PTSD symptoms. PSYCHIATRIC HISTORY: Diagnosis: Dysthymia Current Psychiatrist: No prior psychiatrist Current Therapist: Previously followed by psychologist at [facility] Current Reports Developer: None Last Hospitalization: None Hx of Suicide Attempts: Never Previous Discontinued Psychiatric Med Trials: None SUBSTANCE ABUSE HISTORY: ETOH: Did not assess Marijuana: Did not assess Cocaine: Did not assess Opioids: Did not assess OTHER SUBSTANCE USE: Did not assess SOCIAL HISTORY: Childhood AND Developmental: Did not assess Education: College Employment: Retired - Pediatric Orthopedic surgery RN Relationships: The patient currently is Children: Yes, (2) adult children - maintains Good relationship Current Supports: Include(s) adult children Legal Hx: Did not assess FAMILY PSYCHIATRIC HISTORY: Depression and Dementia MENTAL STATUS: Alertness: Alert Orientation AND Cognition: Oriented to Person, Place and situation. Was able to provide time, but had to look to the patient information board Appearance: appropriate to situation . Demeanor: Cooperative Eye Contact: Good Mood: Sad Affect: Quality: Sad Range: Full Intensity: Responsive Speech: Within normal limits with regard to rate, tone and volume Thought Content: The patient displays thought content appropriate to the interview. Thought Process: Overinclusive - confused Perception: although states no hallucinations, states her daughters often tell her they don't know what she is talking about as they don't see what she does. Abstract Reasoning: Thinking was concrete Suicidal or Homicidal Ideation: Patient denies any suicidal or homicidal ideation, plan or intent at this time. Intelligence: Average Insight: some insight remains intact Judgment: Limited ASSESSMENT OF CAPACITY: is the patient in an altered mental state? No is the patient depressed? yes, but the patient's judgement does not appear to be affected because of it does the patient appear to be suffering from psychosis/delusions? unsure at this time indicates clear understanding of medical condition? No indicates clear understanding of recommended treatment? No indicates clear understanding of other treatment options, if available? No indicates clear understanding of the benefits of recommended treatment? No indicates clear understanding of the risks of recommended treatment? No indicates clear understanding of the medical consequences of refusing recommended treatment? No Based on this evaluation, Ms. Castaneda is judged to lack medical capacity at this time. MITCH COGNITIVE ASSESSMENT (MOCA) Visuospatial/Executive: - Letter/Number Mappin/1 - Copy Cube: 0/1 - Draw Clock (Ten Past Eleven): - Clock Contour 11/26 - Clock Numbers 0/ - Clock Hands 0/ Naming: - Lion 11/26 - Rhino 11/26 - Camel 11/26 Memory: Read list of words and subject must repeat them. Do 2 trials even if 1st trial is successful. There is no scoring for this part of the assessment. - Face, Velvet, Mormonism, Patsy, Red Attention: - Repeat in forward order 2, 1, 8, 5, 4 0/1 - Repeat in backward order 7, 4, 2 0/1 - Read list, subject to tap for A's (zero for >/= to 2 errors) - F B A C M N A A J K L B A F A K D E A A A J A M O F A A B 0/1 - Serial Sevens, 93, 86, 79, 72, 65 - 4-5 correct=3points 2-3 correct=2 points 1 correct = 1 point 0/3 Language: - Repeat: I only know that Matthias is the one to help today 0/1 - Repeat: The cat always hid under the couch when the dogs were in the Room 0/1 - Number of words that begin with F. (1 point for >/= to 11 words) 0/ Abstraction: - Similarity between train and bicycle 0/1 - Similarity between watch and ruler 0/1 Delayed Recall - Words - Face 0/1 - Velvet 0/1 - Mormonism 0/1 - Patsy 0/1 - Red 0/1 Orientation - Date 0/1 - Month / - Year 0/ - Day 11/26 - Place 1/1 - [facility] 11/26 Total Points Scored 05/25 Normal is 26 points or greater. * www.mocatest.org SIGNATURE: Constanza Fisher, PHD, PATIENT NAME: Shola Castaneda DATE: August 26, 2018 TIME: 12:01 AM PAGER: [phone] cell In no answer: [phone] office/ Answering service CASE MANAGEM Observed: 08/25/2018 Status: COMPLETED Source: [place] 4:50 PM [facility] REPOSITORY HNO ID: [id number] Author: Nora (Marcel) MARCEL Cameron Service: Care Management Author Type: Registered Nurse Type: Care Mgt Progress Note Filed: 08/25/2018 4:51 PM Note Text: CARE MANAGEMENT PROGRESS NOTE SERVICE DATE: 08/25/2018 SERVICE TIME: 4:50 PM LOS: 3 days Per STRINGS TEACHER Buddy req Psych eval while pt. in house. Transport to SNF arranged for 11AM Sunday. SIGNATURE: Nora Cameron RN,BSN, M PATIENT NAME: Shola Castaneda DATE: August 25, 2018 TIME: 4:50 PM PAGER/CONTACT #: [phone] PROGRESS Observed: 08/25/2018 Status: COMPLETED Source: [place] 3:11 PM [facility] REPOSITORY HNO ID: [id number] Author: Clarice Paez) [place] Service: Hospital Medicine Author Type: Nurse Practitioner Type: Progress Notes Filed: 08/25/2018 3:23 PM Note Text: SERVICE DATE: 08/25/2018 SERVICE TIME: 3:11 PM HOSPITAL MEDICINE PROGRESS NOTE NIGHT AND WEEKEND COVERAGE: Nights: Please contact pager [phone]. HPI Presented to the hospital for evaluation of sudden onset left wrist pain, swelling and erythema SUBJECTIVE Denies any pain to the left wrist Erythema and edema significantly improved No fever or chills Denies any urinary symptoms OBJECTIVE BP 151/87 Pulse 84 Temp (Src) 98.2 (Oral) Resp 18 Ht 5' 4 (1.63m) Wt 200 lb (90.7kg) SpO2 96% BMI 34.31 kg/(m2). Physical Exam Performed: GENERAL: Alert and conversant, no distress, cooperative SKIN: No rashes or lesions. HEAD/SINUSES: No significant findings. AT/NC EYES: Anicteric, EOMI OROPHARYNX: Lips, mucosa, and tongue normal. MMM LUNGS: Lungs clear to auscultation, good diaphragmatic excursion CARDIAC: Normal S1 and S2; no rubs, murmurs, or gallops ABDOMEN: Abdomen soft, non-tender, BS present EXTREMITIES: Left wrist with erythema and edema (improving), receeding outlined area. Arthritic changes to her feet noted PULSES: 2+ radial, 2+ dorsalis pedis Lines, Drains, and Airways Line Peripheral 08/24/18 0037 Short Left Forearm 22 Gauge 1 day Reviewed lines, drains, AND airways. Need to be continued for medical treatment Medications: Reviewed Diagnostic tests reviewed: Recent Labs 08/25/18 0507 08/24/18 0532 08/23/18 0617 WBC 8.94 12.90* 12.67* HB 12.6 12.1 12.6 PLT 275 251 230 NA 141 140 137 K 3.5* 4.3 3.8 CO2 23 26 22 BUN 16 13 12 CREAT 0.71 0.79 0.77 Left wrist 08/21/2018 IMPRESSION: Degenerative changes with no acute process seen ? Left upper extremity US 08/24/2018 Impression: No evidence of deep venous thrombosis of the left upper extremity. ASSESSMENT AND PLAN Assessment AND Plan, all Hosp Problems Active Hospital Problems as of 08/25/2018 Noted - Resolved Hospital Cellulitis of left hand 08/21/2018 - Present Current Assessment AND Plan Assessment: Presented to the hospital with left wrist pain, swelling and erythema Orthopedics consulted for possible joint aspiration to r/o septic joint, however they feel that there is not enough accumulation of fluid to perform Fevers and leukocytosis resolved Blood cultures negative NGTD CRP mildly elevated at 1.8, ESR 9, Uric acid WNL XR L wrist: Degenerative changes with no acute process seen US negative for DVT ID following PLAN: Oral omnicef until 08/28 per ID recommendations Continue supportive care RICE Percocet prn for pain Continue to follow temps, WBC, blood cultures Debility 08/21/2018 - Present Current Assessment AND Plan Assessment: Wheelchair bound at baseline secondary to severe osteoarthritis Daughter states that patient has become more decompensated recently and she is having more difficulty with her care at home Plan: PT/OT evaluations --> Recommend SNF CM for discharge planning Delirium 08/24/2018 - Present Current Assessment AND Plan Assessment: Family reports patient has short term memory issues Likely underlying dementia present- has not had cognitive assessment Patient with agitation and delirium at night Likely from hospital setting in combination with infectious process Plan: Family requesting geropsych evaluation unfortunately unavailable here Will consult psych for cognitive evaluation- pending Essential hypertension 08/21/2018 - Present Current Assessment AND Plan Assessment: Patient's daughter states patient is non compliant with home BP meds and had not taken in 6 months BP significantly elevated throughout hospitalization Norvasc increased from 5 to 10 mg and lisinopril was increased to 40 mg Noted improvement after adjusting meds PLAN: Continue lisinopril, norvasc, HCTZ Will continue to monitor BP to see if she needs further titration or additional medications Continue hydralazine prn for SBP>180 Pain and swelling of left wrist 08/21/2018 - Present Current Assessment AND Plan Assessment: Presented for pain, erythema and swelling to left wrist Ortho consulted and recommended continue treatment for cellulitis CRP mildly elevated at 1.8, ESR 9, Uric acid WNL US negative for DVT PLAN: Trial steroid burst and IV toradol--> significant improvement with pain, erythema, and edema Continue antibiotics and plan per above She was on Meloxicam several months ago for her arthritis- will reinstate after steroid burst is complete Urinary tract infection without hematuria 08/21/2018 - Present Current Assessment AND Plan Assessment: Patient has hx of recurrent UTI UA positive for nitrite and leuk esterase, however urine cx was negative Denies urinary symptoms Follows with urology as outpatient Received 3 days of IV ceftriaxone, now on oral omnicef PLAN: Continue external female catheter Follow up with urology as scheduled Medication and Non-Pharmacologic VTE Prophylaxis/Anticoagulants Anticoagulant AND Antiplatelet Medications Start Dose Route Frequency Ordered Stop 08/21/18 1600 heparin 5,000 Units injection (Medical At Risk ) 5,000 Units SUBCUTANEOUS EVERY 12 HOURS 08/21/18 1556 -- 08/21/18 1600 pneumatic compression stockings (id,oh) VTE Prophylaxis: VTE prophylaxis appropriate Plan of care discussed with: Patient, Family/Other: Daughter, Lakisha, Case Management and RN SIGNATURE: Clarice Scott APRN.CNP PATIENT NAME: Shola Castaneda DATE: August 25, 2018 TIME: 3:11 PM PAGER/CONTACT #: [phone] CONSULT PROG Observed: 08/25/2018 Status: COMPLETED Source: [place] 10:59 AM CL[facility]IC OTHER CAMPUS REPOSITORY O ID: [id number] Author: Juan Christianson MD Service: Infectious Disease Author Type: Physician Type: Consult Progress Note Filed: 08/26/2018 11:03 AM Note Text: INFECTIOUS DISEASE PROGRESS NOTE Patient Name: Shola Castaneda INTERVAL HISTORY: AF>24 hrs, Tmax 99F. Pain is better. No new complaints. Stable on PO Omnicef. ROS checked in details. All qs answered. Patient Active Hospital Problem List: Cellulitis of left hand (08/21/2018) Essential hypertension (08/21/2018) Debility (08/21/2018) Delirium (08/24/2018) ASSESSMENT: 1. Leukocytosis, likely due to #2 and #3. 2. 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 Normal uric acid does not exclude acute gouty arthritis. She does not have any signs of infection. 3. Suspected recurrent urinary tract infection based on the UA. Urine cultures are normal urogenital carol ann. 4. Neurogenic bladder and incontinence history for which she has a bladder stimulator, but there is no battery in the stimulator per the daughter. 5. Low-grade fevers, likely due to left wrist inflammatory arthritis. 6. Hypertension. 7. Severe osteoarthritis of the knees and wheelchair-bound. ? RECOMMENDATIONS: 1. Continue Omnicef to be given for 4 more days. 2. Consider trial of empiric steroid short course. 3. Follow counts, temps and cultures MEDICATIONS: reviewed. Current hospital medications: predniSONE 40 mg tab(s) (DELTASONE) 40 mg ORAL DAILY lisinopril 40 mg tab(s) (ZESTRIL, PRINIVIL) 40 mg ORAL DAILY cefdinir 300 mg (OMNICEF) 300 mg ORAL BID hydroCHLOROthiazide 25 mg tab(s) (HYDRODIURIL, ESIDRIX) 25 mg ORAL DAILY amLODIPine 10 mg tab(s) (NORVASC) 10 mg ORAL DAILY mirabegron 50 mg ER 24 hour tablet (MYRBETRIQ) 50 mg ORAL DAILY pantoprazole DR 40 mg tab(s) (PROTONIX) 40 mg ORAL DAILY (6 AM) heparin 5,000 Units injection 5,000 Units SUBCUTANEOUS q 12 H oxyCODONE-acetaminophen 5-325 mg 1-2 tablet (PERCOCET) 1-2 tablet ORAL q 6 H PRN hydrALAZINE 10 mg in NaCl 0.9% 10 mL (APRESOLINE) 10 mg INTRAVENOUS q 6 H PRN PHYSICAL EXAM: Vital signs: BP 153/87 Pulse 84 Temp 37 ?C (98.6 ?F) (Oral) Resp 18 Ht 162.6 cm (5' 4) Wt 90.7 kg (200 lb) SpO2 96% BMI 34.33 kg/m? Temp (48hrs), Av.9 ?C (98.5 ?F), Min:36.7 ?C (98.1 ?F), Max:37.2 ?C (99 ?F) General: alert, oriented, NAD Lungs: bilaterally clear to auscultation Heart: regular rate and rhythm Abdomen: soft, non tender, non distended, BS+ Extremities: no edema Left wrist and hand, there is mild tenderness on range of motion of the left wrist, but there is minimal erythema and warmth at the site which was marked on admission. No obvious wounds or skin breakdown. No swollen joints No rashes No joint inflammation Neck supple Lines ok No CVAT Labs: Recent Labs 08/26/18 0412 08/25/18 0507 08/24/18 0532 WBC 8.41 8.94 12.90* HB 12.4 12.6 12.1 HCT 40.1 40.7 39.9 PLT 322 275 251 NA 137 141 140 K 4.0 3.5* 4.3 CHLOR 99 103 103 CO2 27 23 26 BUN 20 16 13 CREAT 0.73 0.71 0.79 Microbiology data: reviewed Imaging data: reviewed Juan Christianson MD Pager: CBC Collected: 08/25/2018 Status: F Source: [place] 5:07 AM CLINIC OTHER CAMPUS REPOSITORY TYPE CODE TESTS RESULT OUT OF REFERENCE UNITS RANGE LAB WBC 3.70-11.00 k/uL WBC 8.94 LAB RBC 3.90-5.20 m/uL RBC 4.93 LAB HGB 11.5-15.5 g/dL Hemoglobin 12.6 LAB HCT 36.0-46.0 % Hematocrit 40.7 LAB MCV 80.0-100.0 fL MCV 82.6 LAB MCH 26.0-34.0 pG Low MCH 25.6 LAB MCHC 30.5-36.0 g/dL MCHC 31.0 LAB RDWCV 11.5-15.0 % RDW-CV High 18.5 LAB PLTCT 150-400 k/uL Platelet Count 275 LAB MPV 9.0-12.7 fL MPV 11.3 Performed By: #### CBC, BMP #### [facility] [address] [facility] [phone] BASIC METABOLIC PANL Collected: 08/25/2018 Status: F Source: [place] 5:07 AM CLINIC OTHER CAMPUS REPOSITORY TYPE CODE TESTS RESULT OUT OF REFERENCE UNITS RANGE LAB GLU 74-99 mg/dL High Glucose 123 Result Comment: The [place] [employer] (ADA) provides guidance for cutoff values for fasting glucose and random glucose. The ADA defines fasting as no caloric intake for at least 8 hours. Fas ting plasma glucose results between 100 to 125 mg/dL indicate increased risk for diabetes (prediabetes). Fasting plasma glucose results greater than or equal to 126 mg/dL meet the criteria for diagnosis of diabetes. In the absence of unequivocal hyperglycemia, results should be confirmed by repeat testing. In a patient with classic symptoms of hyperglycemia or hyperglycemic crisis, random plasma glucose results greater than or equal to 200 mg/dL meet the criteria for diagnosis of diabetes. Reference: Standards of Medical Care in Diabetes 2016, [place] [employer]. Diabetes Care. 2016.39(Suppl 1). LAB BUN 7-21 mg/dL BUN 16 LAB CRET 0.58-0.96 mg/dL Creatinine 0.71 LAB NA 136-144 mmol/L Sodium 141 LAB K 3.7-5.1 mmol/L Potassium Low 3.5 LAB CL 97-105 mmol/L Chloride 103 LAB CO2 22-30 mmol/L CO2 23 LAB AGAP 9-18 mmol/L Anion Gap 15 LAB CA 8.5-10.2 mg/dL Calcium, Total 9.2 LAB GFRAA eGFR- Amer. >60 LAB GFRNAA . eGFR-All Other Races >60 Result Comment: eGFR (Estimated GFR) Units of measure: mL/min/1.73 meters squared eGFR is derived from the reexpressed MDRD Study equation using the following parameters: serum creatinine, age, gender and race. The creatinine assay has been calibrated to be traceable to IDMS. An eGFR <60 mL/min/1.73m2 for >3 months is consistent with chronic kidney disease. Refer to KDOQI guidelines for clinical interpretation. In patients with unstable renal function, e.g. those with acute kidney injury, the eGFR may not accurately reflect actual GFR. Performed By: #### CBC, BMP #### [facility] [address] [facility] [phone] CONSULT PROG Observed: 08/24/2018 Status: COMPLETED Source: [place] 8:27 PM CLINIC OTHER CAMPUS REPOSITORY HNO ID: [id number] Author: Juan Christianson MD Service: Infectious Disease Author Type: Physician Type: Consult Progress Note Filed: 08/24/2018 8:31 PM Note Text: INFECTIOUS DISEASE PROGRESS NOTE Patient Name: Shola Castaneda INTERVAL HISTORY: LG temps 99.7F. Pain is better. No new complaints. Stable off abx. ROS checked in details. All qs answered. Patient Active Hospital Problem List: Cellulitis of left hand (08/21/2018) Urinary tract infection without hematuria (08/21/2018) Essential hypertension (08/21/2018) Debility (08/21/2018) Pain and swelling of left wrist (08/21/2018) Delirium (08/24/2018) ASSESSMENT: 1. Leukocytosis, likely due to #2 and #3. 2. 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 Normal uric acid does not exclude acute gouty arthritis. She does not have any signs of infection. 3. Suspected recurrent urinary tract infection based on the UA. Urine cultures are normal urogenital carol ann. 4. Neurogenic bladder and incontinence history for which she has a bladder stimulator, but there is no battery in the stimulator per the daughter. 5. Low-grade fevers, likely due to left wrist inflammatory arthritis. 6. Hypertension. 7. Severe osteoarthritis of the knees and wheelchair-bound. ? RECOMMENDATIONS: 1. Discontinue IV antibiotic therapy. 2. Start Omnicef to be given for 5 more days. 3. Consider trial of empiric steroid short course. 4. Follow counts, temps and cultures 5. She will likely need Urology re-evaluation and possible replacement of batteries in her bladder stimulator MEDICATIONS: reviewed. Current hospital medications: predniSONE 40 mg tab(s) (DELTASONE) 40 mg ORAL DAILY lisinopril 40 mg tab(s) (ZESTRIL, PRINIVIL) 40 mg ORAL DAILY cefdinir 300 mg (OMNICEF) 300 mg ORAL BID hydroCHLOROthiazide 25 mg tab(s) (HYDRODIURIL, ESIDRIX) 25 mg ORAL DAILY amLODIPine 10 mg tab(s) (NORVASC) 10 mg ORAL DAILY mirabegron 50 mg ER 24 hour tablet (MYRBETRIQ) 50 mg ORAL DAILY pantoprazole DR 40 mg tab(s) (PROTONIX) 40 mg ORAL DAILY (6 AM) heparin 5,000 Units injection 5,000 Units SUBCUTANEOUS q 12 H oxyCODONE-acetaminophen 5-325 mg 1-2 tablet (PERCOCET) 1-2 tablet ORAL q 6 H PRN hydrALAZINE 10 mg in NaCl 0.9% 10 mL (APRESOLINE) 10 mg INTRAVENOUS q 6 H PRN PHYSICAL EXAM: Vital signs: BP 123/89 Pulse 92 Temp 36.7 ?C (98.1 ?F) (Axillary) Resp 20 Ht 162.6 cm (5' 4) Wt 90.7 kg (200 lb) SpO2 96% BMI 34.33 kg/m? Temp (24hrs), Av.2 ?C (98.9 ?F), Min:36.7 ?C (98.1 ?F), Max:37.6 ?C (99.7 ?F) General: alert, oriented, NAD Lungs: bilaterally clear to auscultation Heart: regular rate and rhythm Abdomen: soft, non tender, non distended, BS+ Extremities: no edema Left wrist and hand, there is mild tenderness on range of motion of the left wrist, but there is minimal erythema and warmth at the site which was marked on admission. No obvious wounds or skin breakdown. No swollen joints No rashes No joint inflammation Neck supple Lines ok No CVAT Labs: Recent Labs 08/24/18 0532 08/23/18 0617 08/22/18 0324 WBC 12.90* 12.67* 12.84* HB 12.1 12.6 13.0 HCT 39.9 40.7 41.7 PLT 251 230 252 NA 140 137 139 K 4.3 3.8 3.6* CHLOR 103 101 103 CO2 26 22 23 BUN 13 12 19 CREAT 0.79 0.77 0.81 Microbiology data: reviewed Imaging data: reviewed Juan Christianson MD Pager: Date of service: 08/24/2018 Time of service: 8:28 PM This note is not final until Authenticated by responsible provider. CASE MANAGEM Observed: 08/24/2018 Status: COMPLETED Source: [place] 2:50 PM CLINIC OTHER [place] REPOSITORY HNO ID: [id number] Author: Nora (Rn) Rakesh RN Service: Care Management Author Type: Registered Nurse Type: Care Mgt Progress Note Filed: 08/24/2018 2:55 PM Note Text: CARE MANAGEMENT PROGRESS NOTE SERVICE DATE: 08/24/2018 SERVICE TIME: 2:50 PM LOS: 2 days SNF has precert, can accept. Buddy Ginna calls in, CM informed buddy, Lakisha of D/C today, Buddy states pt. has been yelling all night and dialing 911, she is running low grade temp. CM req STRINGS TEACHER call buddy, Lakisha. D/C held for today, possible D/C Sunday. SIGNATURE: Nora Cameron RN,BSN, ACM PATIENT NAME: Shola Castaneda DATE: August 24, 2018 TIME: 2:50 PM PAGER/CONTACT #: [phone] PROGRESS Observed: 08/24/2018 Status: COMPLETED Source: [place] 1:35 PM [facility] OTHER [place] REPOSITORY HNO ID: [id number] Author: Clarice Paez) [place] Service: Hospital Medicine Author Type: Nurse Practitioner Type: Progress Notes Filed: 08/24/2018 1:36 PM Note Text: SERVICE DATE: 08/24/2018 SERVICE TIME: 1:35 PM HOSPITAL MEDICINE PROGRESS NOTE NIGHT AND WEEKEND COVERAGE: Nights: Please contact pager [phone]. HPI Presented to the hospital for evaluation of left wrist pain, swelling and erythema x's 1 day SUBJECTIVE Left wrist pain improving Still with erythema and edema but better Denies fever or chills Appetite is fair OBJECTIVE BP 143/80 Pulse 86 Temp (Src) 98.2 (Oral) Resp 18 Ht 5' 4 (1.63m) Wt 200 lb (90.7kg) SpO2 95% BMI 34.31 kg/(m2). Physical Exam Performed: GENERAL: Alert and conversant, no distress, cooperative SKIN: No rashes or lesions. HEAD/SINUSES: No significant findings. AT/NC EYES: Anicteric, EOMI OROPHARYNX: Lips, mucosa, and tongue normal. MMM LUNGS: Lungs clear to auscultation, good diaphragmatic excursion CARDIAC: Normal S1 and S2; no rubs, murmurs, or gallops ABDOMEN: Abdomen soft, non-tender, BS present EXTREMITIES: Left wrist with erythema and edema, + warmth to touch, decreased range of motion. Appears to be receeding outlined area. Arthritic changes to her feet noted PULSES: 2+ radial, 2+ dorsalis pedis Lines, Drains, and Airways Line Peripheral 08/24/18 0037 Short Left Forearm 22 Gauge less than 1 day Reviewed lines, drains, AND airways. Need to be continued for medical treatment Medications: Reviewed Diagnostic tests reviewed: Most recent labs and imaging results. Recent Labs 08/24/18 0532 08/23/18 0617 08/22/18 0324 WBC 12.90* 12.67* 12.84* HB 12.1 12.6 13.0 PLT 251 230 252 NA 140 137 139 K 4.3 3.8 3.6* CO2 26 22 23 BUN 13 12 19 CREAT 0.79 0.77 0.81 Left wrist 08/21/2018 IMPRESSION: Degenerative changes with no acute process seen Left upper extremity US 08/24/2018 Impression: No evidence of deep venous thrombosis of the left upper extremity. ASSESSMENT AND PLAN Assessment AND Plan, all Hosp Problems Active Hospital Problems as of 08/24/2018 Noted - Resolved Hospital Cellulitis of left hand 08/21/2018 - Present Current Assessment AND Plan Assessment: Presented to the hospital with left wrist pain, swelling and erythema Orthopedics consulted for possible joint aspiration to r/o septic joint, however they feel that there is not enough accumulation of fluid to perform Intermittent low grade fevers noted Blood cultures negative NGTD x 2 WBCs remain stable CRP mildly elevated at 1.8, ESR 9, Uric acid WNL XR L wrist: Degenerative changes with no acute process seen US negative for DVT ID following PLAN: Oral omnicef until 08/28 per ID recommendations Continue supportive care RICE Percocet prn for pain Continue to follow temps, WBC, blood cultures Debility 08/21/2018 - Present Current Assessment AND Plan Assessment: Wheelchair at baseline bound secondary to severe osteoarthritis of knees Daughter states that patient has become more decompensated recently and she is having more difficulty with her care at home Plan: PT/OT evaluations --> Recommend SNF CM for discharge planning Delirium 08/24/2018 - Present Current Assessment AND Plan Assessment: Family reports patient has short term memory issues Likely underlying dementia present- has not had cognitive assessment Patient with agitation and delirium at night Likely from hospital setting in combination with infectious process Plan: Family requesting geropsych evaluation unfortunately unavailable here Will consult psych for cognitive evaluation Essential hypertension 08/21/2018 - Present Current Assessment AND Plan Assessment: Patient's daughter states patient is non compliant with home BP meds and had not taken in 6 months BP significantly elevated throughout hospitalization Norvasc increased from 5 to 10 mg and lisinopril was increased to 40 mg Noted improvement after adjusting meds PLAN: Continue lisinopril, norvasc, HCTZ Will continue to monitor BP to see if she needs further titration or additional medications Continue hydralazine prn for SBP>180 Pain and swelling of left wrist 08/21/2018 - Present Current Assessment AND Plan Assessment: Presented for pain, erythema and swelling to left wrist Ortho consulted and recommended continue treatment for cellulitis CRP mildly elevated at 1.8, ESR 9, Uric acid WNL US negative for DVT PLAN: Trial steroid burst and IV toradol--> patient reports significant improvement in pain Continue antibiotics and plan per above Urinary tract infection without hematuria 08/21/2018 - Present Current Assessment AND Plan Assessment: Patient has hx of recurrent UTI UA positive for nitrite and leuk esterase, however urine cx was negative Denies urinary symptoms Follows with urology as outpatient Received 3 days of IV ceftriaxone, now on oral omnicef PLAN: Continue external female catheter Follow up with urology as scheduled Medication and Non-Pharmacologic VTE Prophylaxis/Anticoagulants Anticoagulant AND Antiplatelet Medications Start Dose Route Frequency Ordered Stop 08/21/18 1600 heparin 5,000 Units injection (Medical At Risk ) 5,000 Units SUBCUTANEOUS EVERY 12 HOURS 08/21/18 1556 -- 08/21/18 1600 pneumatic compression stockings (fl,oh) VTE Prophylaxis: VTE prophylaxis appropriate Plan of care discussed with: Patient, Family/Other: Daughter (Lakisha), Case Management and RN SIGNATURE: Clarice Scott APRN.CNP PATIENT NAME: Shola Castaneda DATE: August 24, 2018 TIME: 1:35 PM PAGER/CONTACT #: [phone] CASE MANAGEM Observed: 08/24/2018 Status: COMPLETED Source: [place] 11:47 AM CLINIC OTHER CAMPUS REPOSITORY HNO ID: [id number] Author: Nora (Rn) MARCEL Cameron Service: Care Management Author Type: Registered Nurse Type: Care Mgt Progress Note Filed: 08/24/2018 11:49 AM Note Text: CARE MANAGEMENT PROGRESS NOTE SERVICE DATE: 08/24/2018 SERVICE TIME: 11:47 AM LOS: 2 days STRINGS TEACHER req CM to check for precert for pt. to go to SNF. [facility] contacted and will check for precert and call CM back. SIGNATURE: Nora Cameron RN,BSN, ACM PATIENT NAME: Shola Castaneda DATE: August 24, 2018 TIME: 11:47 AM PAGER/CONTACT #: [phone] US DVT UPPER LT Observed: 08/24/2018 Status: F Source: [place] 10:46 AM [facility] OTHER CAMPUS REPOSITORY * * *Final Report* * * DATE OF EXAM: Aug 24 2018 10:46AM MDU 1003 - US DVT UPPER LT / PROCEDURE REASON: Arm swelling or pain, DVT suspected * * * * Physician Interpretation * * * * History: Left arm pain and swelling FINDINGS: Color Doppler sonographic examination of the venous structures of the left upper extremity has been performed. Venous structures were visualized from the level of the left internal jugular vein down to the basilic and cephalic veins. No evidence of deep venous thrombosis is seen throughout. Augmentation and compression are demonstrated throughout. Impression: No evidence of deep venous thrombosis of the left upper extremity. Director College: [employer] Transcribe Date/Time: Aug 24 2018 11:35A Dictated by : ANNETTE GALVAN MD This examination was interpreted and the report reviewed and electronically signed by: ANNETTE GALVAN MD on Aug 24 2018 11:36AM EST [id number] BASIC METABOLIC PANL Collected: 08/24/2018 Status: F Source: [place] 5:32 AM [facility] OTHER CAMPUS REPOSITORY TYPE CODE TESTS RESULT OUT OF REFERENCE UNITS RANGE LAB GLU 74-99 mg/dL High Glucose 117 Result Comment: The [place] [employer] (ADA) provides guidance for cutoff values for fasting glucose and random glucose. The ADA defines fasting as no caloric intake for at least 8 hours. Fas ting plasma glucose results between 100 to 125 mg/dL indicate increased risk for diabetes (prediabetes). Fasting plasma glucose results greater than or equal to 126 mg/dL meet the criteria for diagnosis of diabetes. In the absence of unequivocal hyperglycemia, results should be confirmed by repeat testing. In a patient with classic symptoms of hyperglycemia or hyperglycemic crisis, random plasma glucose results greater than or equal to 200 mg/dL meet the criteria for diagnosis of diabetes. Reference: Standards of Medical Care in Diabetes 2016, [place] [employer]. Diabetes Care. 2016.39(Suppl 1). LAB BUN 7-21 mg/dL BUN 13 LAB CRET 0.58-0.96 mg/dL Creatinine 0.79 LAB NA 136-144 mmol/L Sodium 140 LAB K 3.7-5.1 mmol/L Potassium 4.3 LAB CL 97-105 mmol/L Chloride 103 LAB CO2 22-30 mmol/L CO2 26 LAB AGAP 9-18 mmol/L Anion Gap 11 LAB CA 8.5-10.2 mg/dL Calcium, Total 8.8 LAB GFRAA eGFR- Amer. >60 LAB GFRNAA . eGFR-All Other Races >60 Result Comment: eGFR (Estimated GFR) Units of measure: mL/min/1.73 meters squared eGFR is derived from the reexpressed MDRD Study equation using the following parameters: serum creatinine, age, gender and race. The creatinine assay has been calibrated to be traceable to IDMS. An eGFR <60 mL/min/1.73m2 for >3 months is consistent with chronic kidney disease. Refer to KDOQI guidelines for clinical interpretation. In patients with unstable renal function, e.g. those with acute kidney injury, the eGFR may not accurately reflect actual GFR. Performed By: #### BMP, CBC #### [facility] [address] [place] [address] CBC Collected: 08/24/2018 Status: F Source: [place] 5:32 AM CLINIC OTHER CAMPUS REPOSITORY TYPE CODE TESTS RESULT OUT OF REFERENCE UNITS RANGE LAB WBC 3.70-11.00 k/uL WBC High 12.90 LAB RBC 3.90-5.20 m/uL RBC 4.76 LAB HGB 11.5-15.5 g/dL Hemoglobin 12.1 LAB HCT 36.0-46.0 % Hematocrit 39.9 LAB MCV 80.0-100.0 fL MCV 83.8 LAB MCH 26.0-34.0 pG Low MCH 25.4 LAB MCHC 30.5-36.0 g/dL Low MCHC 30.3 LAB RDWCV 11.5-15.0 % RDW-CV High 18.9 LAB PLTCT 150-400 k/uL Platelet Count 251 LAB MPV 9.0-12.7 fL MPV 10.5 Performed By: #### BMP, CBC #### [facility] [address] [facility] [phone] NURSING PROG Observed: 08/23/2018 Status: COMPLETED Source: [place] 10:09 PM [facility] REPOSITORY HNO ID: [id number] Author: Crissy (Rn) MARCEL Pino Service: (none) Author Type: Registered Nurse Type: Nursing Progress Note Filed: 08/23/2018 10:11 PM Note Text: Nursing Progress Note Patient Name: Shola Castaneda Patient Location: [place] [address]/[id number] Daily Note:Pt is agitated, stated that she will not be taking her medication until she sees a doctor tomorrow. Dr. Patel was notified and he wanted to see if she would take IV antibiotics but the PT refused that as well. Doctor is aware as well as the daughter who has been talking with me and the PT multiple times. This note was completed by: Crissy Pino RN PROGRESS Observed: 08/23/2018 Status: COMPLETED Source: [place] 4:40 PM [facility] REPOSITORY HNO ID: [id number] Author: Monserrat Nelson (Pharmacist) Service: Pharmacy Author Type: Pharmacist Type: Progress Notes Filed: 08/23/2018 4:41 PM Note Text: PHARMACY VANCOMYCIN DOSING NOTE Patient Name: Shola Castaneda Admission Date: 08/21/2018 Date of Consult: 08/23/2018 Time of Consult: 4:40 PM RECOMMENDATIONS/PLAN: 1. The primary service has discontinued vancomycin therapy. Pharmacy vancomycin dosing service will sign off. Thank you for allowing us to participate in this patient's care. Please contact pharmacy if questions. Monserrat Niedenthal, Pharmacist PLAN OF CARE Observed: 08/23/2018 Status: COMPLETED Source: [place] 4:29 PM [facility] REPOSITORY HNO ID: [id number] Author: Yusef Fontenot Service: Infectious Disease Author Type: Physician Type: Plan of Care Filed: 08/23/2018 4:35 PM Note Text: Consult Dictated. Please call with questions. Will follow with you. Thank you. L wrist inflammatory arthritis ? Gout v/s pseudogout; suspected UTI ? Empiric steroid course. omnicef po till 08/28 Yusef Fontenot MD Pager: [phone] Date: 08/23/2018 Time: 4:30 PM NURSING PROG Observed: 08/23/2018 Status: COMPLETED Source: [place] 3:20 PM [facility] REPOSITORY HNO ID: [id number] Author: Angeline Morin RN Service: Nursing Author Type: Registered Nurse Type: Nursing Progress Note Filed: 08/23/2018 3:21 PM Note Text: Nursing Progress Note Patient Name: Shola Castaneda Patient Location: [place] [address]/[id number] Daily Note: 1510 Pt reporting itching in R wrist (where IV located) after IV Vanco started. Stopped IV Vanco and notified Dr Fontenot. This note was completed by: Angeline Morin RN PROGRESS Observed: 08/23/2018 Status: COMPLETED Source: [place] 2:38 PM [facility] REPOSITORY HNO ID: [id number] Author: Molly Wilson (Pa) Service: Hospital Medicine Author Type: Physician Phlebotomy Supervisor Type: Progress Notes Filed: 08/23/2018 4:07 PM Note Text: SERVICE DATE: 08/23/2018 SERVICE TIME: 2:38 PM HOSPITAL MEDICINE PROGRESS NOTE NIGHT AND WEEKEND COVERAGE: Nights: Please contact pager [phone]. SUBJECTIVE Interval Events: Patient seen and evaluated today. Improvement in erythema and swelling of L wrist, no extension beyond marked margins. Still reports tenderness with movement, however ROM is improved today, able to flex/extend, make a fist now. No change really in WBC today 12.84-->12.67 Low grade temps (99.9-100) overnight, afebrile today Denies urinary symptoms, CP, SOB, N/V/D, abdominal pain. OBJECTIVE BP 142/70 Pulse 101 Temp (Src) 98.8 (Oral) Resp 18 Ht 5' 4 (1.63m) Wt 200 lb (90.7kg) SpO2 95% BMI 34.31 kg/(m2). GENERAL: Alert, no distress, cooperative SKIN: mild pink discoloration of the hand extending from the metacarpals to the mid forearm, improved from yesterday, no extension beyond marked margins. Overlying skin in tact. 1+ pitting edema on dorsum of hand up to the wrist. HEAD/SINUSES: No significant findings EYES: PERRLA, EOMI NECK: No jugulovenous distention, Supple BACK: Back symmetric, Normal curvature, ROM normal LUNGS: Lungs clear to auscultation, Good diaphragmatic excursion CARDIAC: Normal S1 and S2; no rubs, murmurs, or gallops ABDOMEN: Abdomen soft, non-tender, BS normal, No masses or organomegaly EXTREMITIES: Deformity of left ankle noted. Small healing scab noted on R pretibial region. No LE edema, clubbing or skin discoloration. Good capillary refill. NEURO: Confused at baseline. Alert but not oriented to place or time. No focal neurological deficits. Cranial nerves II-XII intact PULSES: 2+ radial, 2+ dorsalis pedis Lines, Drains, and Airways Line Peripheral 08/23/18 Right Wrist 20 Gauge less than 1 day Drain Indwelling Urinary Catheter 08/21/18 1200 16 Fr 2 days Reviewed lines, drains, AND airways. Need to be continued Medical Therapy Medications: Reviewed Diagnostic tests reviewed: Most recent imaging XR L Wrist 08/21/18: IMPRESSION: Degenerative changes with no acute process seen Recent Labs 08/23/18 0617 08/22/18 0324 08/21/18 1130 WBC 12.67* 12.84* 18.62* RBC 4.88 5.04 5.54* HB 12.6 13.0 14.4 HCT 40.7 41.7 45.6 PLT 230 252 269 MCV 83.4 82.7 82.3 MCH 25.8* 25.8* 26.0 MPV 11.5 11.4 10.9 ABSNEUT -- -- 14.15* NEUTP -- -- 76 LYMPHP -- -- 8 MONOP -- -- 16 Recent Labs 08/23/18 0617 08/22/18 0324 08/21/18 1130 GLUC 119* 123* 136* NA 137 139 139 K 3.8 3.6* 3.8 CHLOR 101 103 100 CO2 22 23 25 CREAT 0.77 0.81 0.68 BUN 12 19 21 ANION 14 13 14 CA 8.9 9.0 9.6 TPROT -- -- 7.6 ALB -- -- 4.2 TBILI -- -- 0.4 ALKPHOS -- -- 92 AST -- -- 13 ALT -- -- 11 Recent Labs 08/21/18 1130 CRP 1.8* Recent Labs 08/23/18 0617 08/22/18 0324 08/21/18 1130 NA 137 139 139 K 3.8 3.6* 3.8 CHLOR 101 103 100 CO2 22 23 25 ANION 14 13 14 Most recent labs CARE COORDINATION: No Patient Care Coordination Note on file. ASSESSMENT AND PLAN Assessment AND Plan, all Hosp Problems Active Hospital Problems as of 08/23/2018 Noted - Resolved Hospital Cellulitis of left hand 08/21/2018 - Present Current Assessment AND Plan Assessment: Erythema and swelling improved today with RICE therapy Patient still notes tenderness but improved ROM with flexion/extension of the wrist. Orthopedics consulted for possible joint aspiration to r/o septic joint, however they feel that there is not enough accumulation of fluid to perform this currently Low grade temp overnight (100 F)--> afebrile today Blood cultures negative x 2 Not much further improvement in WBC since yesterday 12.84-->12.67 CRP mildly elevated at 1.8, ESR 9, Uric acid WNL XR L wrist: Degenerative changes with no acute process seen ID consulted PLAN: Awaiting further ID recommendations Awaiting ortho recommendations Continue IV Vanco for now Continue RICE therapy Percocet prn for pain Continue to follow temps, WBC, blood cultures Urinary tract infection without hematuria 08/21/2018 - Present Current Assessment AND Plan Assessment: Patient has hx of recurrent UTI UA positive for nitrite and leuk esterase, however urine cx was negative Denies dysuria, urgency, frequency Not much further improvement in WBC since yesterday 12.84-->12.67 Follows with urology as outpatient Patient has now received 3 days of IV ceftriaxone PLAN: Discontinue ceftriaxone after today, as urine cx is negative and patient has received 3 full days of abx therapy Discontinue edwards catheter, external female catheter to be placed Continue to follow temps, blood cultures, and WBC Bandemia 08/21/2018 - Present Essential hypertension 08/21/2018 - Present Current Assessment AND Plan Assessment: Patient's BP consistently elevated SBP 170-180s after initiation of home medications. Patient's daughter states patient is non compliant with home BP meds and had not taken in 6 months Patient has been receiving hydralazine prn for better bp control Norvasc increased from 5 to 10 mg yesterday, BP still not controlled Today lisinopril was increased to 40 mg and BP has been more stable 142/70 PLAN: Continue lisinopril, norvasc, HCTZ Will continue to monitor BP to see if she needs further titration or additional medications Continue hydralazine prn for SBP>180 Urge incontinence of urine 08/21/2018 - Present Current Assessment AND Plan Assessment: Patient has hx of incontinence and currently has a bladder stimulator in place, however not working Follows with urology as outpatient PLAN: Continue home myrbetriq Edwards discontinued, external female catheter to be placed Primary osteoarthritis of both knees 08/21/2018 - Present Current Assessment AND Plan Assessment: Patient currently wheelchair bound secondary to severe osteoarthritis of knees Patient lives with daughter who is her primary home health aide caregiver Spoke with PT who is recommending SNF, daughter is agreeable family independence case manager working on pre-cert for [facility] care facility PLAN: RASHARD harrison today In contact with classification case manager regarding SNF arrangements Debility 08/21/2018 - Present Current Assessment AND Plan Assessment: Wheelchair bound secondary to severe osteoarthritis of knees Daughter states that patient has become more decompensated recently and she is having more difficulty with her care at home. Spoke with PT who is recommending SNF, daughter is agreeable PLAN: RASHARD harrison today In contact with classification case manager regarding SNF arrangements Pain and swelling of left wrist 08/21/2018 - Present Current Assessment AND Plan Assessment: Erythema and swelling improved today with RICE therapy Patient still noting tenderness of L wrist with movement, however ROM improved today Ortho not recommending joint aspiration as there is not enough fluid around joint to perform the procedure CRP mildly elevated at 1.8, ESR 9, Uric acid WNL Not much change in WBC since yesterday 12.84-->12.67 PLAN: Continue IV Vanco for now Continue RICE therapy Percocet prn for pain Awaiting ID recommendations Medication and Non-Pharmacologic VTE Prophylaxis/Anticoagulants Anticoagulant AND Antiplatelet Medications Start Dose Route Frequency Ordered Stop 08/21/18 1600 heparin 5,000 Units injection (Medical At Risk ) 5,000 Units SUBCUTANEOUS EVERY 12 HOURS 08/21/18 1556 -- 08/21/18 1600 pneumatic compression stockings (id,oh) VTE Prophylaxis: VTE prophylaxis appropriate Plan of care discussed with: Patient, Family/Other: daughter and RN SIGNATURE: Molly Wilsno PA-C PATIENT NAME: Shola Castaneda DATE: August 23, 2018 TIME: 2:38 PM PAGER/CONTACT #: [phone] THERAPY NT Observed: 08/23/2018 Status: COMPLETED Source: [place] 1:07 PM CLINIC OTHER CAMPUS REPOSITORY HNO ID: [id number] Author: Mitchel (Ot) Hadrik Service: Occupational Therapy Author Type: Occupational Therapist Type: Therapy (PT/OT/Speech/Resp) Filed: 08/23/2018 1:15 PM Note Text: Occupational Therapy Evaluation SERVICE DATE: 08/23/2018 SERVICE TIME: 1108 to 1145 ROOM: [place] [address] Recommended Discharge Disposition: Subacute/SNF Recommended Discharge Disposition Comments: Patient is functioning below baseline and would benefit from continued therapy at discharge to increase ease independence and safety with ADLS and functional mobility tasks. Justification For Post Acute Needs: Good family support;Living the community premorbidly;Anticipate that patient will require daily (5x/wk) skilled therapy in a post-acute facility setting at the time of acute hospital discharge Anticipated Discharge Needs: Family Training;Physical Assist at Home;Supervision at Home Physical Assist at Home for: Transfers;Finances;Ambulation;Cleaning;Laundry;Meals;Medication Management;Stairs;Safety;Self Care;Shopping;Transportation;Wheelchair Mobility Supervision at Home due to: Decreased safety awareness;Impaired cognition OT Recommendations to Nursing: Encourage patient participation with in-bed ADL?s;Utilize bed in Chair Position OT 6 Clicks Score: 15 Precautions/Activity Restrictions: Fall Risk;Lines/Tubes/Drains Precaution/Activity Restriction Comments: elevated LUE on pillow ASSESSMENT: Patient presents with pain and decreased AROM left wrist and hand decreasing ease independence and safety with ADLs and functional mobility tasks. Patient required assist to sit EOB in preparation for ADL tasks and was unable to achieve partial stand at EOB with patient normally doing stand pivot form surface to wheelchair. Patient required assist with simple grooming tasks at EOB due to decreased use of left hand. Educated patient on simple AROM exercises with left hand and wrist and completed 0 reps supination pronation, wrist flexion extension and digit flexion extension. . Requires skilled OT for increasing functional use of left hand and ease independence and safety with ADLS and functional mobility tasks. Patient Disposition at Start of Session: Supine in Bed;Call Hernández in Reach;Bed Alarm Patient Disposition at End of Session: Supine in Bed;Call Hernández in Reach;Bed Alarm Tolerated Full Session Occupational Therapy Problem List: Cognitive Deficit;Education Deficit;Pain;Safety Deficits;Impaired Self Care;Decreased Activity Tolerance;Decreased Range Of Motion;Decreased Strength;Functional Mobility Impairment;Balance Impaired Patient /Caregiver Goals: Go Home Goals for Plan of Care: Grooming with: Contact Guard Assistance (seated EOB) Upper Body Dressing with: Contact Guard Assistance (seated EOB) Chair Transfer with: Minimal Assistance Additional Goal 1: Patient to particiapte in UE exercises to increase functional use of left hand with daily tasks Progress Toward Goals: Progressing slower than expected Due To: pain left hand Rehab Potential: Fair PLAN: Treatment Frequency (times per week): 2 Current admission Treatment Interventions: Education;Self Care / Home Management;Joint Mobility;Strengthening;Functional Mobility Training;Balance Training Plan of Care developed with: Patient TREATMENT INTERVENTIONS: Therapy Diagnosis: Reduced mobility-other;Decreased activities of daily living (ADL);Muscle Weakness (generalized);General symptoms and signs-other Interventions Provided: Evaluation;Therapeutic Exercise (68299);Therapeutic Activity (34929);Self [facility] ([id number]) $ Evaluation-Low (31921) Billed Units: 1 unit Therapeutic Activity (09338) Treatment Minutes: 10 1 unit Skilled Intervention(s): Instructed patient in supine to and from sit pushing with upper extremities to sit up with cues for technique and extra time required Instruction in sit to and from stand technique with proper hand placement and body positioning at edge of bed/chair with patient unable to achieve buttocks off EOB Self [facility] Management ([id number]) Treatment Minutes: 12 Skilled Intervention(s): Cues for sequencing in hygiene tasks seated EOB with asisst for thoroughness and due to decreased functional use of left hand Provided instruction, cuing and facilitation for lower body dressing with patient unable to asssist with socks at EOB Education in role of OT andplans and goals for therapy. Total Timed Code Treatment Minutes: 27 Total Treatment Time (minutes): 37 FUNCTIONAL G CODE: OT 6 Clicks Score: 15 (08/23/181107) Self Care Current Status (G8987): CK (08/23/181107) Self Care Goal Status (G8988): CJ (08/23/181107) Based on clinical assessment and the score on the 6 Clicks Functional Assessment Tool, the G code and corresponding severity modifiers are documented above. SUBJECTIVE: Current Hospital Course: Chart reviewed; L wrist pain and swelling, no trauma reported. Xray negative for fx, IANDD and orthopedics on consult. Reason for Occupational Therapy Consult: safety assessment Relevant Past Medical History: HTN, asthma, bladder neoplasm, arthritis Patient Report: Patient cleared by nursing for therapy and agreeable to OT Home Environment Patient Lives With: Family (lives with daughter) Assistance Available: 24 Hour (daughter is employed caregiver to pt.) Entry To Home: No Stairs;Elevator;Other: See Comment (Patient reports they are living in hotel with elevator) Number Of Stairs To Bed/Bath: 0 Tub/Shower Type: tub shower with transfer bench Laundry: daughter completes Equipment Owned: Cane;Commode-Raised;Grab Bars-Shower;Grab Bars-Toilet;Hand Held Shower;Hospital Bed;Airworthiness Inspector;Rollator;Shower Bench;Wheelchair Prior Functional Level: Required Assistance Assistance Required With: Cleaning;Laundry;Medication Management;Safety;Self Care;Shopping;Transportation;Wheelchair Mobility Prior Functional Level Comments: Patient questionable historian reporting she was able to complete stand pivot transfers and was wheelchair rodriguez. Reports daughter assisted as needed with sponge bath and dressing and daughter completed all IADLS. Patient living at [facility] with plans to move to apartment next week. OBJECTIVE: Orientation Deficits: Not oriented to Time;Not oriented to Situation Responsiveness: Alert;Awake Follows Commands: Cueing Needed Cueing to Follow Commands: Moderate Mini Cog Score: 0 (08/23/18 1108) CURRENT FUNCTIONAL STATUS: Current Activities of Daily Living Assist Level Feeding Minimal Assistance (set up of items) Grooming Minimal Assistance (seated EOB for washing face and hands) Bathing Upper Body Minimal Assistance (per clinical judgment) Bathing Lower Body Maximal Assistance (per clinical judgment) Dressing Upper Body Minimal Assistance (per clinical judgment) Dressing Lower Body Maximal Assistance (unable to assist with socks ) Toileting Instrumental Activities of Daily Living Assist Level Meal/Beverage Prep Light Cleaning Laundry Medication Management with Strategies Functional Mobility Assist Level Rolling Supine to Sit Minimal Assistance Sit to Supine Moderate Assistance (for LE management into bed) Scooting Sit to Stand Total Assistance (unable to achieve buttocks off bed) Stand to Sit Bed to Chair Toilet/Commode Functional Mobility Activity Tolerance: (fatigues quickly with activity) Please see discipline specific clinical documentation flowsheet for complete details for this therapy evaluation/treatment. SIGNATURE: CHACHO Wong/Jasiel PATIENT NAME: Shola Castandea DATE: August 23, 2018 TIME: 1:07 PM PROGRESS Observed: 08/23/2018 Status: COMPLETED Source: [place] 8:01 AM [facility] OTHER CAMPUS REPOSITORY O ID: [id number] Author: Monserrat Nelson (Pharmacist) Service: Pharmacy Author Type: Pharmacist Type: Progress Notes Filed: 08/23/2018 9:58 AM Note Text: PHARMACY VANCOMYCIN DOSING NOTE Patient Name: Shola Castaneda Admission Date: 08/21/2018 Date of Consult: 08/23/2018 Time of Consult: 8:02 AM Indication: Skin/Soft tissue infection Goal Range: 10-20 mcg/mL RECOMMENDATIONS/PLAN: Pharmacy consulted for vancomycin dosing for Shola Castaneda, a 78 year old, female who is being treated with vancomycin. 1. Patient is currently ordered Vancomycin 1.5 g IV q24h. Today is day 3 of therapy. 2. No vancomycin level has been drawn for this dosing regimen. 3. The present dose of vancomycin is the recommended dosage for this patient at this time. Continue therapy as prescribed. 4. The next vancomycin level has been ordered for 08-23-18 at 1300 (Completed). We will follow patient renal function, vancomycin levels and doses with you during the course of therapy. Additional recommendations will appear in follow up notes. If you have any questions, please contact pharmacy at [phone]. Age: [age] year old Allergies: ALLERGIES Allergen Reactions - Adhesive Rash, Itching - Latex Unknown Last 3 Encounter Wt Readings: Date: Wt: 08/21/2018 90.7 kg (200 lb) 09/20/2017 86.2 kg (190 lb) 08/15/2017 90.7 kg (200 lb) Last 1 Encounter Ht Readings: Date: Ht: 08/21/2018 162.6 cm (5' 4) CrCl: Estimated Creatinine Clearance: 63.6 mL/min (based on SCr of 0.77 mg/dL). Temp (24hrs), Av.6 ?C (99.7 ?F), Min:37.3 ?C (99.2 ?F), Max:37.8 ?C (100 ?F) - Current Temp: 37.7 ?C (99.9 ?F) Labs BUN (mg/dL) Date Value 08/23/2018 12 08/22/2018 19 08/21/2018 21 Creatinine (mg/dL) Date Value 08/23/2018 0.77 08/22/2018 0.81 08/21/2018 0.68 WBC (k/uL) Date Value 08/23/2018 12.67 (H) 08/22/2018 12.84 (H) 08/21/2018 18.62 (H) Vancomycin Levels: No results found for: RAJ Wright (Paint Dipper) Preceptor Addendum: This case has been reviewed and discussed with the pharmacy technician infusion. I agree with the assessment/plan described by the student. Changes and additions to the details in the note are indicated by italics and . Monserrat Nelson, Pharmacist NURSING PROG Observed: 08/23/2018 Status: COMPLETED Source: [place] 6:48 AM CLINIC OTHER CAMPUS REPOSITORY O ID: [id number] Author: Candace (Rn) MARCEL Trotter Service: (none) Author Type: Registered Nurse Type: Nursing Progress Note Filed: 08/23/2018 6:49 AM Note Text: Nursing Progress Note Patient Name: Shola Castaneda Patient Location: [id number] Daily Note: 0600 Pt pulled IV access out. This RN attempt 2 IVs; unsuccesfully. Second Rn attempts IV placement This note was completed by: Candace Trotter RN CBC Collected: 08/23/2018 Status: F Source: [place] 6:17 AM CLINIC OTHER CAMPUS REPOSITORY TYPE CODE TESTS RESULT OUT OF REFERENCE UNITS RANGE LAB WBC 3.70-11.00 k/uL WBC High 12.67 LAB RBC 3.90-5.20 m/uL RBC 4.88 LAB HGB 11.5-15.5 g/dL Hemoglobin 12.6 LAB HCT 36.0-46.0 % Hematocrit 40.7 LAB MCV 80.0-100.0 fL MCV 83.4 LAB MCH 26.0-34.0 pG Low MCH 25.8 LAB MCHC 30.5-36.0 g/dL MCHC 31.0 LAB RDWCV 11.5-15.0 % RDW-CV High 18.9 LAB PLTCT 150-400 k/uL Platelet Count 230 LAB MPV 9.0-12.7 fL MPV 11.5 Performed By: #### CBC, BMP #### [facility] [address] [facility] [phone] BASIC METABOLIC PANL Collected: 08/23/2018 Status: F Source: [place] 6:17 AM CLINIC OTHER CAMPUS REPOSITORY TYPE CODE TESTS RESULT OUT OF REFERENCE UNITS RANGE LAB GLU 74-99 mg/dL High Glucose 119 Result Comment: The [place] Diabetes Association (ADA) provides guidance for cutoff values for fasting glucose and random glucose. The ADA defines fasting as no caloric intake for at least 8 hours. Fas ting plasma glucose results between 100 to 125 mg/dL indicate increased risk for diabetes (prediabetes). Fasting plasma glucose results greater than or equal to 126 mg/dL meet the criteria for diagnosis of diabetes. In the absence of unequivocal hyperglycemia, results should be confirmed by repeat testing. In a patient with classic symptoms of hyperglycemia or hyperglycemic crisis, random plasma glucose results greater than or equal to 200 mg/dL meet the criteria for diagnosis of diabetes. Reference: Standards of Medical Care in Diabetes 2016, [place] [employer] Association. Diabetes Care. 2016.39(Suppl 1). LAB BUN 7-21 mg/dL BUN 12 LAB CRET 0.58-0.96 mg/dL Creatinine 0.77 LAB NA 136-144 mmol/L Sodium 137 LAB K 3.7-5.1 mmol/L Potassium 3.8 LAB CL 97-105 mmol/L Chloride 101 LAB CO2 22-30 mmol/L CO2 22 LAB AGAP 9-18 mmol/L Anion Gap 14 LAB CA 8.5-10.2 mg/dL Calcium, Total 8.9 LAB GFRAA eGFR- Amer. >60 LAB GFRNAA . eGFR-All Other Races >60 Result Comment: eGFR (Estimated GFR) Units of measure: mL/min/1.73 meters squared eGFR is derived from the reexpressed MDRD Study equation using the following parameters: serum creatinine, age, gender and race. The creatinine assay has been calibrated to be traceable to IDMS. An eGFR <60 mL/min/1.73m2 for >3 months is consistent with chronic kidney disease. Refer to KDOQI guidelines for clinical interpretation. In patients with unstable renal function, e.g. those with acute kidney injury, the eGFR may not accurately reflect actual GFR. Performed By: #### CBC, BMP #### [facility] [address] [place] [address] CONSULT Observed: 08/23/2018 Status: COMPLETED Source: [place] 12:00 AM CLINIC OTHER CAMPUS REPOSITORY O ID: [id number] Author: Yusef Fontenot Service: Infectious Disease Author Type: Physician Type: Consults Filed: 08/26/2018 2:07 PM Note Text: [facility]- Consultation SHOLA CASTANEDA : 1940 AGE: 78 SEX: F ACCTNUM: [id number] [facility]: [facility] LOCATION: [id number] ATTENDING PHYSICIAN: SHANNON SELLERS DATE OF CONSULTATION: 08/23/2018 REFERRING PHYSICIAN: Shannon Sellers MD REASON FOR CONSULTATION: Fever, leukocytosis, left hand cellulitis. HISTORY: The patient is an 78-year-old female, who has a history of severe osteoarthritis, urinary incontinence, neurogenic bladder, and recurrent UTIs, apparently came to the ER with abrupt onset of left wrist and hand pain, which started on the morning of admission. She denied any trauma to the area. She is wheelchair bound due to severe arthritis. She noticed the pain in her left wrist when she woke up. She did not have any fevers or chills. She was noted to have a leukocytosis. Also, UA had shown some nitrites and leukocytes. She was placed on vancomycin and ceftriaxone. We have been asked to assist with further management. She was also seen by Orthopedics, but there was no fluid noted to be aspirated in her left wrist. Her pain appears to have improved. She has no history of gout or pseudogout in the past. Her uric acid level checked on admission was at 6.4, which was in the normal range. Inflammatory markers showed a normal ESR and mildly elevated CRP. Today, her left wrist appears to be better. Other review of systems were done with the patient and her daughter and were negative. PAST MEDICAL HISTORY: 1. Severe osteoarthritis. 2. Hypertension. 3. Neurogenic bladder. 4. Urinary incontinence. 5. Recurrent UTIs. 6. She has a retained bladder stimulator, but battery has not been changed and the stimulator has not been functional per the daughter. 7. She has also had interstitial cystitis and urge incontinence. PAST SURGICAL HISTORY: 1. Bladder stimulator placement. 2. Hysterectomy. 3. Rotator cuff repair on the right. ALLERGIES: No antibiotic allergies. MEDICATIONS: Reviewed. FAMILY HISTORY: No infections. SOCIAL HISTORY: She is a former smoker. There is no history of alcohol abuse. She is a retired orthopedic nurse. REVIEW OF SYSTEMS: Similar to history of present illness. Negative unless otherwise stated. PHYSICAL EXAM: Vital Signs: Currently afebrile. Vital signs are stable. T-max is 100 Fahrenheit. General Appearance: She is alert and oriented x1-2, which is her baseline. Head, Eyes, and ENT Examination: Unremarkable. Neck: Supple. Lungs: Clear to auscultation. Heart: Regular rate and rhythm. Abdomen: Soft, nontender, and nondistended. Extremities: Left wrist and hand, there is mild tenderness on range of motion of the left wrist, but there is minimal erythema and warmth at the site which was marked on admission. No obvious wounds or skin breakdown. No swollen joints, otherwise. Neurological: No focal deficits. Examination: No CVA tenderness. She does not have a Edwards catheter. LABORATORY: White count is down to 12.6 from admission, hemoglobin 12.6, platelets 230,000. BMP showed a creatinine of 0.77. Transaminases were normal. ESR 9. CRP 1.8. Blood cultures are negative. Urine culture showed 50 to less than 100,000 colonies of normal urogenital carol ann. Imaging data was reviewed. X- ray of her left wrist did not show any acute changes. IMPRESSION: 1. Leukocytosis, likely due to #2 and #3. 2. 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 Normal uric acid does not exclude acute gouty arthritis. She does not have any signs of infection. 3. Suspected recurrent urinary tract infection based on the UA. Urine cultures are normal urogenital carol ann. 4. Neurogenic bladder and incontinence history for which she has a bladder stimulator, but there is no battery in the stimulator per the daughter. 5. Low-grade fevers, likely due to left wrist inflammatory arthritis. 6. Hypertension. 7. Severe osteoarthritis of the knees and wheelchair-bound. RECOMMENDATIONS: 1. Discontinue IV antibiotic therapy. 2. Start Omnicef to be given for 5 more days. 3. Consider trial of empiric steroid short course. 4. Discussed with the patient's daughter in detail. 5. She will likely need Urology re-evaluation and possible replacement of batteries in her bladder stimulator, which may help prevent further infections down the road. Yusef Fontenot M.D. Infectious Disease [id number] /[id number] CASE MANAGEM Observed: 08/22/2018 Status: COMPLETED Source: [place] 5:13 PM CLINIC OTHER CAMPUS REPOSITORY O ID: [id number] Author: Maricruz Flores (Sw) Service: Care Management Author Type: Corn Popper Type: Care Mgt Progress Note Filed: 08/22/2018 5:16 PM Note Text: CARE MANAGEMENT PROGRESS NOTE SERVICE DATE: 08/22/2018 SERVICE TIME: 5:15pm LOS: 0 days Spoke with patient's daughterGinna ([phone]). PT [facility]; awaiting response. Will need 7000 form and precert. Daughter requests BLS transport with [facility]. SIGNATURE: LISA Long PATIENT NAME: Shola Castaneda DATE: August 22, 2018 TIME: 5:13 PM PAGER/CONTACT #: [phone] CONSULT Observed: 08/22/2018 Status: COMPLETED Source: [place] 3:05 PM CLINIC OTHER CAMPUS REPOSITORY HNO ID: [id number] Author: Roman Peralta Service: Orthopaedic Surgery Author Type: Physician Type: Consults Filed: 08/22/2018 3:13 PM Note Text: CONSULT: ORS SERVICE SERVICE DATE: 08/22/2018 SERVICE TIME: 3:05 PM REASON FOR CONSULT: left hand/ wrist pain and swelling REQUESTING PHYSICIAN: PRIMARY CARE PHYSICIAN: Jerry Mclaughlin MD Subjective Ms. Castaneda is a 78 year old female who presents for acute onset of left hand and wrist pain and swelling. She states that she did catch her left index finger on a corner about 2-3 days ago. She developed spontaneous onset of swelling of the dorsum of her left hand and wrist. Seen in the ER where xrays showed DJD of the left wrist. No fracture identified. Admitted for rx of the cellulitis. FUNCTIONAL STATUS: Partially dependent PAST MEDICAL HISTORY Diagnosis Date - Arthritis - Arthropathy - Asthma - Bladder neoplasm of uncertain malignant potential - Dysuria - Hypertension - IC (interstitial cystitis) - Nocturia - Urge incontinence - Urgency of urination - Urinary incontinence - UTI (urinary tract infection) PAST SURGICAL HISTORY Procedure Laterality Date - BLADDER SURGERY HX - HYSTERECTOMY HX - ROTATOR CUFF REPAIR Right FAMILY HISTORY Problem Relation Age of Onset - Allergies Mother - Hypertension Mother - Cancer Father - Breast Cancer Sister - Heart Other - Heart Other Social History Substance Use Topics - Smoking status: Former Smoker Quit date: 2008 - Smokeless tobacco: Never Used - Alcohol use No Prescriptions Prior to Admission: aspirin/acetaminophen/caffeine (EXCEDRIN EXTRA STRENGTH ORAL) Take 2 tablets by mouth three times daily as needed. Disp: Rfl: 08/21/2018 at 0800 Magnesium Oxide 250 mg tab Take 1 tablet by mouth once daily. Disp: Rfl: 08/20/2018 at 0800 melatonin 10 mg tab Take 10 mg by mouth daily at bedtime. Disp: Rfl: 08/20/2018 at 2100 aspirin, enteric coated (ASPIRIN, ENTERIC COATED) 81 mg EC tablet Take 81 mg by mouth once daily. Disp: Rfl: 08/20/2018 at 0800 ferrous sulfate 325 mg (65 mg iron) tablet Take 325 mg by mouth daily with breakfast. Disp: Rfl: 08/20/2018 at 0800 amLODIPine (NORVASC) 5 mg tablet Take 5 mg by mouth once daily. Disp: Rfl: Not Taking at Unknown time fluticasone (FLONASE) 50 mcg/actuation nasal spray Use 1 [place] [place] in each nostril once daily. Disp: Rfl: Not Taking at Unknown time lisinopril (ZESTRIL, PRINIVIL) 20 mg tablet Take 20 mg by mouth once daily. Disp: Rfl: Not Taking at Unknown time mirabegron (MYRBETRIQ) 50 mg Tb24 Take 50 mg by mouth once daily. Disp: Rfl: Not Taking at Unknown time omeprazole (PRILOSEC) 20 mg capsule Take 20 mg by mouth once daily. Disp: Rfl: Not Taking at Unknown time pantoprazole DR (PROTONIX) 40 mg tablet Take 40 mg by mouth once daily. Disp: Rfl: Not Taking at Unknown time Current hospital medications: hydroCHLOROthiazide 25 mg tab(s) (HYDRODIURIL, ESIDRIX) 25 mg ORAL DAILY [START ON 08/23/2018] amLODIPine 10 mg tab(s) (NORVASC) 10 mg ORAL DAILY lisinopril 20 mg tab(s) (ZESTRIL, PRINIVIL) 20 mg ORAL DAILY mirabegron 50 mg ER 24 hour tablet (MYRBETRIQ) 50 mg ORAL DAILY pantoprazole DR 40 mg tab(s) (PROTONIX) 40 mg ORAL DAILY (6 AM) heparin 5,000 Units injection 5,000 Units SUBCUTANEOUS q 12 H NaCl 0.9% iv infusion 75 mL/hr INTRAVENOUS CONTINUOUS oxyCODONE-acetaminophen 5-325 mg 1-2 tablet (PERCOCET) 1-2 tablet ORAL q 6 H PRN vancomycin 1.5 g in D5W 250 mL (VANCOCIN) 0.015 g/kg/dose INTRAVENOUS q 24 HR cefTRIAXone 1 g in D5W 100 mL MB+ (ROCEPHIN) 1 g INTRAVENOUS q 24 H vancomycin dosing and monitoring per pharmacy OTHER As Directed hydrALAZINE 10 mg in NaCl 0.9% 10 mL (APRESOLINE) 10 mg INTRAVENOUS q 6 H PRN Allergies As of Date: 08/21/2018 Allergen Noted Reaction ADHESIVE 08/21/2018 Rash and Itching LATEX 08/14/2017 Unknown Fully Assessed 08/21/2018 COMPLETE REVIEW OF SYSTEMS: MUSCULOSKELETAL: see HPI Objective PHYSICAL EXAM: Physical Exam Performed: EXTREMITIES: No ulcers, She has swelling of the dorsum of her left hand and wrist. Minimal redness noted. Her pain is most localized over the metacarpal phalangeal region. Good wrist motion noted with minimal pain. Neurovascular status intact. BP 182/94 Pulse 88 Temp (Src) 99 (Oral) Resp 18 Ht 5' 4 (1.63m) Wt 200 lb (90.7kg) SpO2 97% BMI 34.31 kg/(m2). DATA: Diagnostic tests reviewed for today's visit: Most recent imaging White count coming down. Impression/Recommendations Active Problems: Cellulitis of left hand POA: Yes Assessment AND Plan: Continue with IV antibiotics and observation Urinary tract infection without hematuria POA: Unknown Assessment AND Plan: per med Bandemia POA: Unknown Assessment AND Plan: per med Essential hypertension POA: Unknown Assessment AND Plan: per med Urge incontinence of urine POA: Unknown Assessment AND Plan: per med Primary osteoarthritis of both knees POA: Unknown Assessment AND Plan: observation Debility POA: Unknown Assessment AND Plan: per med Pain and swelling of left wrist POA: Yes Assessment AND Plan: as above Resolved Problems: * No resolved hospital problems. * SIGNATURE: Roman Peralta MD PATIENT NAME: Shola Castaneda DATE: August 22, 2018 TIME: 3:05 PM PAGER: [phone] THERAPY NT Observed: 08/22/2018 Status: COMPLETED Source: [place] 1:59 PM CLINIC OTHER CAMPUS REPOSITORY O ID: [id number] Author: Ashley (Pt) Cuauhtemoc Service: Physical Therapy Author Type: Physical Therapist Type: Therapy (PT/OT/Speech/Resp) Filed: 08/22/2018 2:45 PM Note Text: Physical Therapy Evaluation SERVICE DATE: 08/22/2018 SERVICE TIME: 1109 to 1230 Split session [id number], [phone] due to need for use of bed maldonado ROOM: [place] [id number] Recommended Discharge Disposition: Subacute/SNF Recommended Discharge Disposition Comments: Pt with decline in fucntion and requiring significant assist with funcitonal activity indicating a need for continued therapy post acute stay. Justification For Post Acute Needs: Good family support;Good sitting tolerance;Medically complex;Willing to participate;May not tolerate higher intensity programing;Anticipate that patient will require daily (5x/wk) skilled therapy in a post-acute facility setting at the time of acute hospital discharge Recommended Discharge Equipment: To Be Determined PT Recommendations to Nursing: Transfer to/from chair;Passive lift to/from chair;Sit at edge of bed;With assist of 2 people Device: (least restrictive device if needed) PT 6 Clicks Score: 10 Precautions/Activity Restrictions: Fall Risk;Lines/Tubes/Drains Precaution/Activity Restriction Comments: elevated LUE on pillow ASSESSMENT : Patient presents with decline in functional mobility and increased pain limiting tolerance to activity and requiring increased assist to complete. Pt is minimal to maximal assist with bed mobility with c/o pain in L hand and BLEs, unable to progress to standing at this time due to pain and weakness although attempted and pt unable to clear buttock from surface. Pt is AANDO x 2 with daughter answering most PLOF questions. Pt is distractible but is easily redirected. Pt with good family support but at this time needs exceed resources available and pt would benefit from continued daily skilled therapy to address deficits and safely progress activity for increased safety and independence at home. Patient Disposition at Start of Session: Supine in Bed Patient Disposition at End of Session: Supine in Bed Tolerance Limited By Fatigue;Pain Physical Therapy Problem List: Cognitive Deficit;Education Deficit;Edema;Pain;Safety Deficits;Impaired Self Care;Decreased Activity Tolerance;Decreased Range Of Motion;Decreased Strength;Functional Mobility Impairment;Balance Impaired Patient /Caregiver Goals: Go To Rehab Goals for Plan of Care: Able to perform HEP with: Verbal Cues Only Rolling with: Stand By Assistance Transfer supine to/from sit with: Contact Guard Assistance (bed controls allowed) Transfer sit to/from stand with: Moderate Assistance (LRAD if needed) Transfer: bed to chair/wheelchair, least restrictvie technique and device to sit for meals Goal: Pt to maintain standing balance x 1 minute to reduce risk of falls Rehab Potential: Fair PLAN: Treatment Frequency (times per week): 4 Current admission Treatment Interventions: Education;Joint Mobility;Strengthening;Functional Mobility Training;Balance Training;Modalities Modalities: Ice Plan of Care developed with: Patient (daughter) TREATMENT INTERVENTIONS: Therapy Diagnosis: Reduced mobility-other Interventions Provided: Evaluation;Therapeutic Activity (87148) $ Evaluation-Low (76920) Billed Units: 1 unit Therapeutic Activity (85878) Treatment Minutes: 40 3 units Skilled Intervention(s): Instructed patient in log roll technique with cues for reach and grasp to bed rails for assist Instructed patient in supine to sit pushing with upper extremities to sit up, use of bed rails, HOB elevated, use of bed rails for assist Instructed patient in sit to supine using safe, effective technique Instruction in sit to stand technique with proper hand placement and body positioning at edge of bed/chair Pt completes alternating marches at EOB Cues provided for effective use of UEs and appropriate weight shifting to maintain EOB sitting balance Education: Pt and daughter educated in role of PT during acute stay and PT POC, benefits of ice and elevation with LUE, importance of OOB activity with nursing to reduce risk of functional decline, rationale for discharge recommendation of SNF, use of call light 100% of the time for assist 10 reps B ankle pumps, quad sets, glute sets and heel slides performed with min to moderate assist required, rest breaks taken for fatigue and pt and daughter educated on purpose of anti-embolic exercises and parameters of performance. Discussed with daughter benefits of motorized wheelchair with drop arms for increased safety with transfers and ease with propulsion and that wheelchair assessment would need scheduled See below for additional cues and assist Total Timed Code Treatment Minutes: 40 Total Treatment Time (minutes): 64 SUBJECTIVE: Current Hospital Course: Chart reviewed; Reason for Physical Therapy Consult : Safety assessment Relevant Past Medical History: Pt presents with L wrist pain and swelling, no trauma reported. Xray negative for fx, IANDD and orthopedics on consult. PMH: HTN, IC, asthma, bladder neoplasm, bladder surgery, rotator cuff repair. Patient Report: Pt agreeable to PT Home Environment Patient Lives With: (daughter) Assistance Available: 24 Hour (daughter is employed caregiver to pt.) Entry To Home: Ramp Number Of Stairs To Bed/Bath: 0 Tub/Shower Type: tub shower with transfer bench Laundry: daughter completes Equipment Owned: Cane;Commode-Raised;Grab Bars-Shower;Grab Bars-Toilet;Hand Held Shower;Hospital Bed;Airworthiness Inspector;Rollator;Shower Bench;Wheelchair Prior Functional Level: Required Assistance Assistance Required With: Cleaning;Laundry;Medication Management;Safety;Self Care;Shopping;Transportation;Wheelchair Mobility Prior Functional Level Comments: Pt and daughter reporting pt baseline is stand pivoting to wheelchair, typically able to propel self in wheelchair. Pt able to dress self, use microwave for meals, 1 fall sliding off couch. OBJECTIVE: Range of Motion: Right LE Measurement;Left LE Measurement Right Hip ROM: limited by approx 25% Right Knee ROM: AAROM ext/flex approx 30 - 80 degrees Right Ankle ROM: WFLs Left Hip ROM: WFLs Left Knee ROM: lacks full knee ext by approx 20 degrees, flexion WFLs Left Ankle ROM: arthritic changes medially limiting inversion, PF limited Strength Limitation Comments: BLEs grossly 3-/5 CURRENT FUNCTIONAL STATUS: Current Functional Mobility Assist Level Additional Information Rolling Contact Guard Assistance x 2 trials for placement of bed pain with noted increased ease rolling toward L side Supine to Sit Moderate Assistance Pt ted to sit self up to long sitting position but unable to rotate hips and manage LEs over EOB without moderate assist with use of draw pad from PT. Pt with limited ability to assist self with turning with LUE due to pain Sit to Supine Maximal Assistance x 2 Assist with trunk and LE management Scooting Moderate Assistance Max A x 2 with use of draw pad to scoot to HOB in supine with assist by bridging Use of draw pad to progress EOB scooting in sitting with assist for LE positioning once feet touching ground. Extended time to complete due to pain in L had and LEs Sit to Stand Total Assistance (attempted but unable to complete) Pt unable to clear buttock form bed surface, feet placed and blocked by PT in attempt to stand, allowed LUE on walker with PT stabilizing on R but unable to perform. Stand to Sit Bed to Chair Toilet/Commode Gait Stairs Curb Step Car Transfer Balance: Static Sitting;Dynamic Sitting;Static Standing;Dynamic Standing Static Sitting Balance: Stand By Assistance Dynamic Sitting Balance: Contact Guard Assistance Please see discipline specific clinical documentation flowsheet for complete details for this therapy evaluation/treatment. SIGNATURE: Ashley Posadas PT PATIENT NAME: Shola Castandea DATE: August 22, 2018 TIME: 1:59 PM PROGRESS Observed: 08/22/2018 Status: COMPLETED Source: [place] 1:38 PM CLINIC OTHER CAMPUS REPOSITORY HNO ID: [id number] Author: Molly Wilson (Pa) Service: Hospital Medicine Author Type: Physician Phlebotomy Supervisor Type: Progress Notes Filed: 08/22/2018 1:57 PM Note Text: SERVICE DATE: 08/22/2018 SERVICE TIME: 1:38 PM HOSPITAL MEDICINE PROGRESS NOTE NIGHT AND WEEKEND COVERAGE: Nights: Please contact pager [phone]. HPI SUBJECTIVE Interval Events: Patient seen and evaluated today. Reviewed HANDP and labs from yesterday. Both patient and daughter stating that erythema and swelling are much worse today and spreading proximally. Even further limitations in ROM of left wrist, unable to flex/extend at the joint. WBC improved from yesterday (18.62-->12.84). No fevers/chills overnight. Still awaiting ortho recommendations. ID also consulted. PT recommending SNF, daughter is agreeable. Patient will be made inpatient. OBJECTIVE BP 182/94 Pulse 88 Temp (Src) 99 (Oral) Resp 18 Ht 5' 4 (1.63m) Wt 200 lb (90.7kg) SpO2 97% BMI 34.31 kg/(m2). Physical Exam Performed: GENERAL: Alert, no distress, cooperative SKIN: Erythema and swelling noted on the dorsum of the left hand, spreading proximally to the mid forearm. Overlying skin is intact and without drainage. 2+ pitting edema on dorsum of hand. Tenderness to palpation. HEAD/SINUSES: No significant findings EYES: PERRLA, EOMI NECK: No jugulovenous distention, Supple BACK: Back symmetric, Normal curvature, ROM normal LUNGS: Lungs clear to auscultation, Good diaphragmatic excursion CARDIAC: Normal S1 and S2; no rubs, murmurs, or gallops ABDOMEN: Abdomen soft, non-tender, BS normal, No masses or organomegaly EXTREMITIES: No deformities, clubbing or skin discoloration. Good capillary refill., No ulcers. NEURO: Patient confused at baseline. Alert but not oriented to place, month, year. Cranial nerves II-XII intact PULSES: 2+ radial, 2+ dorsalis pedis Lines, Drains, and Airways Line Peripheral 08/21/182051 Assessment Short Right Wrist 20 Gauge less than 1 day Drain Indwelling Urinary Catheter 08/21/18 1200 16 Fr 1 day Reviewed lines, drains, AND airways. Need to be continued Medical Management Medications: Reviewed Diagnostic tests reviewed: Most recent imaging XR L wrist: 08/22/18 Degenerative changes with no acute process seen Recent Labs 08/22/18 0324 08/21/18 1130 WBC 12.84* 18.62* RBC 5.04 5.54* HB 13.0 14.4 HCT 41.7 45.6 PLT 252 269 MCV 82.7 82.3 MCH 25.8* 26.0 MPV 11.4 10.9 ABSNEUT -- 14.15* NEUTP -- 76 LYMPHP -- 8 MONOP -- 16 Recent Labs 08/22/18 0324 08/21/18 1130 GLUC 123* 136* NA 139 139 K 3.6* 3.8 CHLOR 103 100 CO2 23 25 CREAT 0.81 0.68 BUN 19 21 ANION 13 14 CA 9.0 9.6 TPROT -- 7.6 ALB -- 4.2 TBILI -- 0.4 ALKPHOS -- 92 AST -- 13 ALT -- 11 Recent Labs 08/21/18 1130 CRP 1.8* Recent Labs 08/22/18 0324 08/21/18 1130 GLUC 123* 136* Recent Labs 08/22/18 0324 08/21/18 1130 NA 139 139 K 3.6* 3.8 CHLOR 103 100 CO2 23 25 ANION 13 14 Recent Labs 08/22/18 0324 08/21/18 1130 BUN 19 21 CREAT 0.81 0.68 CA 9.0 9.6 P -- 2.9 MG 1.8 -- Most recent labs CARE COORDINATION: No Patient Care Coordination Note on file. ASSESSMENT AND PLAN Assessment AND Plan, all Hosp Problems Active Hospital Problems as of 08/22/2018 Noted - Resolved Hospital Cellulitis of left hand 08/21/2018 - Present Current Assessment AND Plan Assessment: Patient presented with erythema and swelling of L hand and wrist which began yesterday morning. Denies trauma, fevers or chills at home Both patient and daughter note that swelling and erythema are much worse today and is spreading proximally up her left arm. She also has even further limitation in ROM of wrist, increased tenderness with movement On IV Vanco Ortho consulted for possible aspiration to r/o septic joint- still awaiting recommendations Skin markings drawn to outline area of erythema CRP mildly elevated at 1.8, ESR 9, Uric acid WNL XR L wrist: Degenerative changes with no acute process seen PLAN: Will consult ID for further recommendations given worsening appearance Awaiting ortho recommendations Continue IV Vanco Continue RICE therapy Percocet prn for pain Blood cultures show no growth x 1 day Urinary tract infection without hematuria 08/21/2018 - Present Current Assessment AND Plan Assessment: Patient has hx of recurrent UTI UA positive for nitrite and leuk esterase. Denies dysuria, urgency, frequency. Follows with urology as outpatient Still awaiting urine cx results Currently on IV ceftriaxone PLAN: Continue to follow urine culture Continue ceftriaxone WBC improved today 18.62-->12.84 Blood cx negative x 1 day Bandemia 08/21/2018 - Present Essential hypertension 08/21/2018 - Present Current Assessment AND Plan Assessment: Patient's BP consistently elevated SBP 170-180s after initiation of home medications. Patient's daughter states patient is non compliant with home BP meds and had not taken in 6 months Patient has been receiving hydralazine prn for better bp control PLAN: Continue lisinopril, norvasc, HCTZ Norvasc increased to 10 mg Will continue to monitor BP to see if need to titrate other medications as well Continue hydralazine prn for SBP>180 Urge incontinence of urine 08/21/2018 - Present Current Assessment AND Plan Assessment: Patient has hx of incontinence and currently has a bladder stimulator in place, however not working Follows with urology as outpatient PLAN: Continue home myrbetriq Primary osteoarthritis of both knees 08/21/2018 - Present Current Assessment AND Plan Assessment: Patient currently wheelchair bound secondary to severe osteoarthritis of knees Patient lives with daughter who is her primary home health aide caregiver Spoke with PT who is recommending SNF, daughter is agreeable Patient to be switched to inpatient, given worsening condition of L hand and requirement for IV antibiotics. PLAN: Will discuss SNF arrangements further with case management Debility 08/21/2018 - Present Current Assessment AND Plan Assessment: Wheelchair bound secondary to severe osteoarthritis of knees Daughter states that patient has become more decompensated recently and she is having more difficulty with her care at home. Spoke with PT who is recommending SNF, daughter is agreeable PLAN: Will discuss SNF arrangements further with case management Pain and swelling of left wrist 08/21/2018 - Present Current Assessment AND Plan Assessment: Pain, erythema and swelling worse today despite initiation of IV Vanco Ortho consulted for possible aspiration to r/o septic joint- still awaiting recommendations Skin markings drawn to outline area of erythema CRP mildly elevated at 1.8, ESR 9, Uric acid WNL PLAN: Continue IV Vanco for now Continue RICE therapy Percocet prn for pain Awaiting ortho and ID recommendations Medication and Non-Pharmacologic VTE Prophylaxis/Anticoagulants Anticoagulant AND Antiplatelet Medications Start Dose Route Frequency Ordered Stop 08/21/18 1600 heparin 5,000 Units injection (Medical At Risk ) 5,000 Units SUBCUTANEOUS EVERY 12 HOURS 08/21/18 1556 -- 08/21/18 1600 pneumatic compression stockings (id,oh) VTE Prophylaxis: VTE prophylaxis appropriate Plan of care discussed with: Patient, Family/Other: Daughter and RN SIGNATURE: Molly Wilson PA-C PATIENT NAME: Shola Castaneda DATE: August 22, 2018 TIME: 1:38 PM PAGER/CONTACT #: [phone] NURSING PROG Observed: 08/22/2018 Status: COMPLETED Source: [place] 11:48 AM CLINIC OTHER CAMPUS REPOSITORY HNO ID: [id number] Author: Stephanie (Rn) MARCEL De La Rosa Service: (none) Author Type: Registered Nurse Type: Nursing Progress Note Filed: 08/22/2018 4:26 PM Note Text: Nursing Progress Note Topic of Note: Daily Note Shola Castaneda [id number]: Assumed care of patient. Patient currently with eyes closed with no verbal complaints. IVF infusing per order. Left wrist exposed; edema and swelling noted. Patient remains afebrile. IV rocephin and vanco ordered. Edwards draining yellow urine without complication. 0930: Patient at baseline mentality; confused to time and place; patient unable to provide RN her date of . IV Rocephin ordered and infusing per order. Left wrist remains swollen and painful to touch. IVF infusing per order. Edwards intact and draining WNL. 1130: Bed bath and juan f-care provided by [facility]. No change in patient's assessment or mental status; patient remains afebrile. IV rocephin infusion completed; IVF infusing at this time. PA marked erythematous area on extremity. 1229: PRN percocet provided for left extremity pain. 1330: Left extremity elevated on pillows and ice applied per order. Aristeo wrap on hold until all consults have seen site and patient complaining of pain and tenderness to touch. Patient remains afebrile. IV antibiotics ordered. Patient awaiting Ortho and ID consults. 1345: Patient's status changed to inpatient. This note was completed by: Stephanie De La Rosa RN PROGRESS Observed: 08/22/2018 Status: COMPLETED Source: [place] 10:49 AM [facility] OTHER CAMPUS REPOSITORY O ID: [id number] Author: Clarice Burns (Pharmacy Resdient) Service: Pharmacy Author Type: Pharmacist Type: Progress Notes Filed: 08/22/2018 10:53 AM Note Text: PHARMACY VANCOMYCIN DOSING NOTE Patient Name: Shola Castaneda Admission Date: 08/21/2018 Date of Consult: 08/22/2018 Time of Consult: 10:49 AM Indication: Bone AND joint infection Goal Range: 15-20 mcg/mL RECOMMENDATIONS/PLAN: Pharmacy consulted for vancomycin dosing for Shola Castaneda, a 78 year old, female who is being treated with vancomycin. 1. Patient is currently ordered Vancomycin 1.5 g IV q24h. Today is day 2 of therapy. 2. No vancomycin level has been drawn for this dosing regimen. 3. The present dose of vancomycin is the recommended dosage for this patient at this time. Continue therapy as prescribed. 4. The next vancomycin level will be ordered for 08/24 unless clinically indicated sooner. (Pharmacy will order) We will follow patient renal function, vancomycin levels and doses with you during the course of therapy. Additional recommendations will appear in follow up notes. If you have any questions, please contact pharmacy at [phone]. Age: [age] year old Allergies: ALLERGIES Allergen Reactions - Adhesive Rash, Itching - Latex Unknown Last 3 Encounter Wt Readings: Date: Wt: 08/21/2018 90.7 kg (200 lb) 09/20/2017 86.2 kg (190 lb) 08/15/2017 90.7 kg (200 lb) Last 1 Encounter Ht Readings: Date: Ht: 08/21/2018 162.6 cm (5' 4) CrCl: 60.4 mL/min Temp (24hrs), Av.3 ?C (99.1 ?F), Min:37 ?C (98.6 ?F), Max:37.6 ?C (99.7 ?F) - Current Temp: 37.2 ?C (99 ?F) Labs BUN (mg/dL) Date Value 08/22/2018 19 08/21/2018 21 08/30/2009 19 Creatinine (mg/dL) Date Value 08/22/2018 0.81 08/21/2018 0.68 08/30/2009 0.90 WBC (k/uL) Date Value 08/22/2018 12.84 (H) 08/21/2018 18.62 (H) 08/30/2009 7.79 Vancomycin Levels: No results found for: RAJ BURNS, TABLE GAMES MANAGER CBC Collected: 08/22/2018 Status: F Source: [place] 3:24 AM [facility] OTHER CAMPUS REPOSITORY TYPE CODE TESTS RESULT OUT OF REFERENCE UNITS RANGE LAB WBC 3.70-11.00 k/uL WBC High 12.84 LAB RBC 3.90-5.20 m/uL RBC 5.04 LAB HGB 11.5-15.5 g/dL Hemoglobin 13.0 LAB HCT 36.0-46.0 % Hematocrit 41.7 LAB MCV 80.0-100.0 fL MCV 82.7 LAB MCH 26.0-34.0 pG Low MCH 25.8 LAB MCHC 30.5-36.0 g/dL MCHC 31.2 LAB RDWCV 11.5-15.0 % RDW-CV High 18.9 LAB PLTCT 150-400 k/uL Platelet Count 252 LAB MPV 9.0-12.7 fL MPV 11.4 Performed By: #### CBC, BMP, MG1 #### [facility] [address] [facility] [phone] BASIC METABOLIC PANL Collected: 08/22/2018 Status: F Source: [place] 3:24 AM [facility] OTHER CAMPUS REPOSITORY TYPE CODE TESTS RESULT OUT OF REFERENCE UNITS RANGE LAB GLU 74-99 mg/dL High Glucose 123 Result Comment: The [place] [employer] (ADA) provides guidance for cutoff values for fasting glucose and random glucose. The ADA defines fasting as no caloric intake for at least 8 hours. Fas ting plasma glucose results between 100 to 125 mg/dL indicate increased risk for diabetes (prediabetes). Fasting plasma glucose results greater than or equal to 126 mg/dL meet the criteria for diagnosis of diabetes. In the absence of unequivocal hyperglycemia, results should be confirmed by repeat testing. In a patient with classic symptoms of hyperglycemia or hyperglycemic crisis, random plasma glucose results greater than or equal to 200 mg/dL meet the criteria for diagnosis of diabetes. Reference: Standards of Medical Care in Diabetes 2016, [place] [employer]. Diabetes Care. 2016.39(Suppl 1). LAB BUN 7-21 mg/dL BUN 19 LAB CRET 0.58-0.96 mg/dL Creatinine 0.81 LAB NA 136-144 mmol/L Sodium 139 LAB K 3.7-5.1 mmol/L Potassium Low 3.6 LAB CL 97-105 mmol/L Chloride 103 LAB CO2 22-30 mmol/L CO2 23 LAB AGAP 9-18 mmol/L Anion Gap 13 LAB CA 8.5-10.2 mg/dL Calcium, Total 9.0 LAB GFRAA eGFR- Amer. >60 LAB GFRNAA . eGFR-All Other Races >60 Result Comment: eGFR (Estimated GFR) Units of measure: mL/min/1.73 meters squared eGFR is derived from the reexpressed MDRD Study equation using the following parameters: serum creatinine, age, gender and race. The creatinine assay has been calibrated to be traceable to IDMS. An eGFR <60 mL/min/1.73m2 for >3 months is consistent with chronic kidney disease. Refer to KDOQI guidelines for clinical interpretation. In patients with unstable renal function, e.g. those with acute kidney injury, the eGFR may not accurately reflect actual GFR. Performed By: #### CBC, BMP, MG1 #### [facility] [address] [place] [address] MAGNESIUM Collected: 08/22/2018 Status: F Source: [place] 3:24 AM [facility] OTHER CAMPUS REPOSITORY TYPE CODE TESTS RESULT OUT OF REFERENCE UNITS RANGE LAB MG 1.7-2.3 mg/dL Magnesium 1.8 Performed By: #### CBC, BMP, MG1 #### [facility] [address] [facility] [phone] NURSING PROG Observed: 08/21/2018 Status: COMPLETED Source: [place] 7:00 PM [facility] OTHER CAMPUS REPOSITORY HNO ID: [id number] Author: Erika (Rn) MARCEL Drew Service: Nursing Author Type: Registered Nurse Type: Nursing Progress Note Filed: 08/22/2018 5:37 AM Note Text: Nursing Progress Note Patient Name: Shola Castaneda Patient Location: [place] [id number] Daily Note: 1900 Assumed care for patient at this time. IV bleeding, replaced by previous RN. IV patent and IVF running no complications noted. Patient alert and oriented x2. Patient has edwards in place draining clear yellow urine. Patient picks at things on her bed and always is doing something with her hands. Patient C/O pain in R wrist but denies need for medication 1951 Systolic BP >180, called pharmacy for them to send up PRN IV hydralazine. Patient asymptomatic, denies MALHOTRA, CP, SOB, or N/V 2040 IV hydralazine given per MD order for BP systolic >180 2100 BP rechecked after Hydralazine, systolic <180 2300 Patient observed resting in bed with eyes closed and easy respirations. IVF running, no complications noted. No observation of pain at this time 2356 Systolic BP > 180 again, MD called, new orders received 0008 IV pain medication given per MD order 0100 Patient observed resting in bed with eyes closed and easy respirations. IVF running, no complications noted. No observation of pain at this time 0103 BP rechecked, systolic < 180. MD notified, no new orders received 0300 Patient observed resting in bed with eyes closed and easy respirations. IVF running, no complications noted. No observation of pain at this time 0500 Patient observed resting in bed with eyes closed and easy respirations. IVF running, no complications noted. No observation of pain at this time This note was completed by: Erika Drew RN PROGRESS Observed: 08/21/2018 Status: COMPLETED Source: [place] 4:15 PM [facility] OTHER CAMPUS REPOSITORY [facility] ID: [id number] Author: Monserrat Nelson (Pharmacist) Service: Pharmacy Author Type: Pharmacist Type: Progress Notes Filed: 08/21/2018 4:18 PM Note Text: PHARMACY VANCOMYCIN DOSING NOTE Patient Name: Shola Castaneda Admission Date: 08/21/2018 Date of Consult: 08/21/2018 Time of Consult: 4:15 PM Indication: Bone AND joint infection Goal Range: 15-20 mcg/mL RECOMMENDATIONS/PLAN: Pharmacy consulted for vancomycin dosing for Shola Castaneda, a 78 year old, female who is being treated with vancomycin 1. Patient ordered Vancomycin 1.5 g IV q12h. Today is day 1 of therapy. (1st dose given in ED) 2. No vancomycin level has been drawn for this dosing regimen. 3. Will adjust vancomycin to 1.5 g with a dosing interval of q24h 4. The next vancomycin level will be ordered for 08/25 unless clinically indicated sooner. (Pharmacy will order) We will follow patient renal function, vancomycin levels and doses with you during the course of therapy. Additional recommendations will appear in follow up notes. If you have any questions, please contact pharmacy at [phone]. Age: [age] year old Allergies: ALLERGIES Allergen Reactions - Adhesive Rash, Itching - Latex Unknown Last 3 Encounter Wt Readings: Date: Wt: 08/21/2018 90.7 kg (200 lb) 09/20/2017 86.2 kg (190 lb) 08/15/2017 90.7 kg (200 lb) Last 1 Encounter Ht Readings: Date: Ht: 08/21/2018 162.6 cm (5' 4) CrCl: 72 mL/min Temp (24hrs), Av.3 ?C (99.2 ?F), Min:37.1 ?C (98.7 ?F), Max:37.6 ?C (99.7 ?F) - Current Temp: 37.6 ?C (99.7 ?F) Labs BUN (mg/dL) Date Value 08/21/2018 21 08/30/2009 19 08/23/2009 18 Creatinine (mg/dL) Date Value 08/21/2018 0.68 08/30/2009 0.90 08/23/2009 1.05 WBC (k/uL) Date Value 08/21/2018 18.62 (H) 08/30/2009 7.79 08/23/2009 6.50 Vancomycin Levels: No results found for: RAJ Nelson, Pharmacist NURSING PROG Observed: 08/21/2018 Status: COMPLETED Source: [place] 3:45 PM [facility]IN[facility] OTHER CAMPUS REPOSITORY HNO ID: [id number] Author: Bridget EstradaRn) MARCEL Davalos Service: Nursing Author Type: Registered Nurse Type: Nursing Progress Note Filed: 08/21/2018 6:58 PM Note Text: Nursing Progress Note Patient Name: Shola Castaneda Patient Location: [place] [id number] Daily Note:1545 - pt admitted to the obs unit in stable condition. Pt and family oriented to unit, call light and safety; verbalizes understanding. Admission and assessment completed and noted; see epic. Safety maintained. 1600 This note was completed by: Bridget Davalos RN CASE MGT INIT Observed: 08/21/2018 Status: COMPLETED Source: [facility] 3:42 PM [facility] REPOSITORY HNO ID: [id number] Author: Bee EstradaRn) MARCEL Phillip Service: (none) Author Type: Registered Nurse Type: Care Mgt Initial Assessment Filed: 08/21/2018 4:17 PM Note Text: CARE MANAGEMENT: ASSESSMENT AND DISCHARGE PLAN SERVICE DATE: 08/21/2018 SERVICE TIME: 3:42 PM solid fiber paster operator met with patient, patients Ginna Castaneda and Friend Mayte daughter and at bedside in the emergency department. Introduction made and role of case management explained. Patient states she is agreeable to assessment questions. Patient gives permission for Ginna and Mayte to remain at bedside and participate in the interview. Assessment information provided by electronic medical record and patient. PRIMARY CARE PHYSICIAN: Jerry Mclaughlin MD - confirmed ADMISSION STATUS: Emergency Needs Prior to Discharge: To Be Determined;OT/PT Evaluation;Facility or Agency Choices;Bed Availability;Accepting Facility;Pharmacy Bedside Delivery;Precertification;Discharge Transportation MEDICAL: Patient/Monotypist Stated Goals: To have reduction in pain To have reduction in symptoms To improve my functional status To return home to life as it was Health Insurance: [place] None Health Issues Impacting Discharge Plan: Left Wrist Pain - Cellulitis of left upper extremity Last Admission Date: none Is this Within the Past 30 days? No Advance Directive: Current Advance Directive: Health Care Power of Sdv Pilot/Navigator/Dds Operator;Living Will In Chart: No Security Systems Manager Attempted to Assist with AD Completion: Yes Action: Education Provided (CM has informed patient she may bring a copy of her advance directives for her medical record.) Health Literacy: 1. How often do you need to have someone help you when you read instructions, pamphlets, or other written material from your doctor or pharmacy? Always - 5 2. How confident are you filling out medical forms by yourself? Not at all - 5 If Patient scores > 3 on either question, the following interventions were put into place: Use of plain language and active listening with Patient and family, Teach back methods employed to ensure comprehension and Use concrete and specific phrases, avoid medical jargon Patients daughter states her mother was a surgical nurse and she understands the information being provided but she can not remember it. FUNCTIONAL AND COGNITIVE/BEHAVIORAL PRIOR TO ADMISSION: Baseline Mental Status: Alert AND Oriented, Person, Place , Time and Situation Functional Status: Needs Assistance Patients daughter states patient transfers herself in and out of her wheelchair. Does Patient Currently Receive Any Community Services or Home Care? None Equipment Prior to Admission: Wheelchair Has the Patient Been in a Mcfp Facility in the Past 30 days? No SOCIAL: Living Arrangement: Home Currently living in a [facility] that has handicap accessible accommadations. Patient is currently in the process of moving to an handicap accessible apartment with her daughter Ginna in [facility] provided the new address: [address] [place] [address] Lives With: Daughter/SAMANTHA Castaneda [phone] Financial Resources: Retired - Surgical Nurse Primary Contact: Primary Emergency Contact: Ginna Castaneda Mobile Relation: Daughter Supportive: Yes Other Important Patient Contacts: None Caregiver Assessment: Caregiver is ready, willing and able to meet the patient's needs as recommended by the inter-professional team? To be determined Patient's transition needs and plan for meeting these needs: To be determined Does the patient have an acute stroke diagnosis, or has the patient had a stroke during this admission? No Medication Adherence: I am convinced of the importance of my prescription medication: Agree completely - 0 I worry that my prescription medication will do more harm than good to me Disagree completely - 0 I feel financially burdened by my [id number] expenses for my prescription medication: Disagree completely - 0 Patient is categorized as low risk < 2 Are you interested in bedside delivery of your medications? No Food Concerns: In the Last Month, Have You had Trouble Getting Food? No trouble getting food During the Last Month, Have You Worried Whether Your Food Would Run Out Before You Had Enough Money to Buy More? No Is the Patient Psychosocially Complex? Yes, refer to Social Work. ASSESSMENT AND PLAN: Medical Needs: 2 or more chronic diseases UTI Left Wrist Redness/Pain Essential HTN Urge Incontinence OA both Knees Disability Psychosocial Needs: None FREEDOM OF CHOICE EXPLAINED: Yes [place] of Choice explained to patient, Ginna and Venicia The patient and/or family has been given the Provider List: Yes Provider List: Home Care and Mcfp Facility Preference: No preference provided at this time. Awaiting patient choices. Patients daughter is requesting Medical Transport for Discharge Transportation. Patient, Ginna and Loca have been informed by CM that cost of medication discharge transportation is the responsibility of the patient. Patient and Ginna state they understand this are are agreeable to medical transport at discharge. POTENTIAL TRANSITION PLANS Discharge Needs: To Be Determined PT/OT evaluations Home Home [facility] PT/OT Mcfp Facility Discharge Transportation: Medical Transport requested by Ginna Castaneda Patient informed Care Management is available to aid in discharge planning needs. Primary Care Physician: Jerry Mclaughlin MD - [facility] Summary of Care to be sent at discharge. SIGNATURE: Bee Phillip RN PATIENT NAME: Shola Castaneda DATE: August 21, 2018 TIME: 3:42 PM PAGER/CONTACT #: [phone] ED NOTE Observed: 08/21/2018 Status: COMPLETED Source: [place] 2:31 PM [facility] OTHER CAMPUS REPOSITORY HNO ID: [id number] Author: Ambar (Rn) MARCEL Westbrook Service: Nursing Author Type: Registered Nurse Type: ED Notes Filed: 08/21/2018 2:31 PM Note Text: SBAR report to Bridget HILL PLAN OF CARE Observed: 08/21/2018 Status: COMPLETED Source: [place] 1:41 PM [facility] OTHER CAMPUS REPOSITORY HNO ID: [id number] Author: Mary Ellen Manley (P[place] Marina) Service: Pharmacy Author Type: Pharmacist Type: Plan of Care Filed: 08/21/2018 2:35 PM Note Text: MEDICATION HISTORY Patient Name:.Shola Castaneda : 1940 Source of history:Family, Dispense Report available in [facility] medical records (Care Everywhere): Reliability of source: Appears reliable, clearly identified: Medication name, Medication dose, Medication route, Medication frequency, Timing of last dose and Indications Medication Nonadherence Identified: Family reports that patient is not taking her prescribed medications. She is only taking OTC medications, which I added to her PHARMACOLOGY TEACHER list. The above information represents the best possible medication history: Yes Additional comments: ? Medications removed: ? Acetaminophen, amoxicillin, tramadol, and trazodone ? Medications adjusted ? Melatonin (changed from 3 mg daily to 10 mg daily) ? Medications added: ? Excedrin extra strength, magnesium, melatonin, aspirin, and ferrous sulfate ? Allergy list modifications: ? Added adhesives to allergy list. Family reported a reaction of rash and itching. Allergies: ALLERGIES Allergen Reactions - Adhesive Rash, Itching - Latex Unknown Current PHARMACOLOGY TEACHER Medications: Prior to Admission medications as of 08/21/18 1429 Medication Sig Last Dose Taking aspirin/acetaminophen/caffeine (EXCEDRIN EXTRA STRENGTH ORAL) Take 2 tablets by mouth three times daily as needed. 08/21/2018 at 0800 Yes Magnesium Oxide 250 mg tab Take 1 tablet by mouth once daily. 08/20/2018 at 0800 Yes melatonin 10 mg tab Take 10 mg by mouth daily at bedtime. 08/20/2018 at 2100 Yes aspirin, enteric coated (ASPIRIN, ENTERIC COATED) 81 mg EC tablet Take 81 mg by mouth once daily. 08/20/2018 at 0800 Yes ferrous sulfate 325 mg (65 mg iron) tablet Take 325 mg by mouth daily with breakfast. 08/20/2018 at 0800 Yes amLODIPine (NORVASC) 5 mg tablet Take 5 mg by mouth once daily. Not Taking at Unknown time Yes fluticasone (FLONASE) 50 mcg/actuation nasal spray Use 1 [place] in each nostril once daily. Not Taking at Unknown time Yes lisinopril (ZESTRIL, PRINIVIL) 20 mg tablet Take 20 mg by mouth once daily. Not Taking at Unknown time Yes mirabegron (MYRBETRIQ) 50 mg Tb24 Take 50 mg by mouth once daily. Not Taking at Unknown time Yes omeprazole (PRILOSEC) 20 mg capsule Take 20 mg by mouth once daily. Not Taking at Unknown time Yes pantoprazole DR (PROTONIX) 40 mg tablet Take 40 mg by mouth once daily. Not Taking at Unknown time Yes MARY ELLEN MANLEY, TABLE GAMES MANAGER August 21, 2018 1:41 PM Observed: 08/21/2018 Status: F Source: [place] BLOOD CULTURE 1:40 PM CLINIC OTHER [place] REPOSITORY Culture Result - No growth 5 days Performed By: #### BLCUL #### [facility] [address] [place], [place] [address] Observed: 08/21/2018 Status: F Source: [place] BLOOD CULTURE 1:35 PM [facility] REPOSITORY Culture Result - No growth 5 days Performed By: #### BLCUL #### [facility] [address] [place], [place] [address] HISTORY PHYSICAL Observed: 08/21/2018 Status: COMPLETED Source: [place] 1:33 PM [facility] REPOSITORY HNO ID: [id number] Author: Shannon Sellers Service: Hospital Medicine Author Type: Physician Type: HANDP Filed: 08/21/2018 2:01 PM Note Text: HISTORY AND PHYSICAL EXAMINATION SERVICE DATE: 08/21/2018 SERVICE TIME: 1:33 PM PRIMARY CARE PHYSICIAN: Jerry Mclaughlin MD Subjective CHIEF COMPLAINT: Pain and swelling in the left wrist HPI: This is a 78 year old female with past medical history of severe osteoarthritis, htn and urinary incontinence who presents to the Er with the complain of left wrist pain and swelling which started this morning. The patient has history of severe arthritis and is wheel chair bound due to severe knee and ankle arthritis. When she woke up this morning her left wrist was red and swollen, she denies any fevers or chills, she denies any falls. On presentation to the Er she was found to have an elevated wbc count, she was also found to have a UTI. She was started on vancomycin and ceftriaxone for concern of septic joint. Dr peralta from orthopedics was consulted by the ER. She has history of urinary incontinence and has a bladder stimulator in place which is currently out of battery. She follows up with urology as outpatient and has frequent Urinary tract infections. She has a history of high blood pressure but has not taken her home medications in 6 months. She had elevated BP in the 220s systolic which came down after starting her home BP medications. FUNCTIONAL STATUS: Limited most or all of the time (uses scooter, mobility device) PAST MEDICAL HISTORY Diagnosis Date - Arthritis - Arthropathy - Asthma - Bladder neoplasm of uncertain malignant potential - Dysuria - Hypertension - IC (interstitial cystitis) - Nocturia - Urge incontinence - Urgency of urination - Urinary incontinence - UTI (urinary tract infection) PAST SURGICAL HISTORY Procedure Laterality Date - BLADDER SURGERY HX - HYSTERECTOMY HX - ROTATOR CUFF REPAIR Right FAMILY HISTORY Problem Relation Age of Onset - Allergies Mother - Hypertension Mother - Cancer Father - Breast Cancer Sister - Heart Other - Heart Other Social History Substance Use Topics - Smoking status: Former Smoker Quit date: 2008 - Smokeless tobacco: Never Used - Alcohol use No (Not in a hospital admission) ALLERGIES Allergen Reactions - Latex Unknown COMPLETE REVIEW OF SYSTEMS: GENERAL: No weight loss, malaise or fevers RESPIRATORY: Negative for cough, hemoptysis, wheezing, COPD, dyspnea or shortness of breath CARDIOVASCULAR: Negative for chest pain, leg swelling, hypertension, CHF or palpitations GI: No nausea, vomiting, or diarrhea : Positive for incontinence has a bladder stimulator in place. and frequent urinary tract infections . MUSCULOSKELETAL: joint pain or swelling SKIN: Negative for lesions, rash, and itching HEMATOLOGY/LYMPHOLOGY: Negative for prolonged bleeding, bruising easily or swollen nodes ENDOCRINE: Negative for cold or heat intolerance, polyuria, polydipsia and goiter Objective PHYSICAL EXAM: Physical Exam Performed: GENERAL: No Distress, Mild Distress, Cooperative HEAD/SINUSES: No significant findings LUNGS: Lungs clear to auscultation, Good diaphragmatic excursion CARDIAC: Normal S1 and S2; no rubs, murmurs, or gallops ABDOMEN: Abdomen soft, non-tender, BS normal, No masses or organomegaly EXTREMITIES: left knee is swollen and patient has a contracture on the left leg and is unable to straighten it out. Left wrist is swollen and red, extremely tender to palpation and both active and passive range of motion are restricted. NEURO: Grossly normal cognition, motor function, and cranial nerves III-XII PULSES: 2+ radial, 2+ carotid BP 167/77 Pulse 96 Temp 98.7 Resp 16 Ht 5' 4 (1.63m) Wt 200 lb (90.7kg) SpO2 97% BMI 34.31 kg/(m2). DATA: Diagnostic tests reviewed for today's visit: 08/21/2018 12:29 PM - Reg, Lab Mu Oru In Component Results Component Value Range AND Units Status Performing Lab WBC, Urine 0-5 0 - 5 /HPF Final MED LAB RBC, Urine 0-3 0 - 3 /HPF Final MED LAB Cast SEE COMMENT 0 /LPF Final MED LAB Comment: 0 Bacteria Moderate (A) 0 /HPF Final MED LAB Epithelial Cells SEE COMMENT /HPF Final MED LAB Comment: 0-5 Squamous Epithelial Cells Crystal SEE COMMENT (A) 0 /HPF Final MED LAB Comment: Moderate Amorphous 08/21/2018 12:29 PM - Reg, Lab Mu Oru In Component Results Component Value Range AND Units Status Performing Lab Color Yellow Yellow Final MED LAB Appearance (U) Clear Clear Final MED LAB Glucose, Urine Negative Negative mg/dL Final MED LAB Bilirubin, Urine Negative Negative Final MED LAB Ketones, Urine Negative Negative Final MED LAB Specific [place], Ur 1.010 1.001 - 1.029 Final MED LAB Hemoglobin/Blood,Ur Trace (A) Negative ? ? Final MED LAB pH, Urine 6.0 5.0 - 8.0 Final MED LAB Protein, Urine Trace (A) Negative mg/dL Final MED LAB Urobilinogen 0.2 0.2 - 1.0 Final MED LAB Nitrites Positive (A) Negative Final MED LAB Leukest Trace (A) Negative 08/21/2018 12:07 PM - Reg, Lab Mu Oru In Component Results Component Value Range AND Units Status Performing Lab Uric Acid 6.4 2.5 - 6.6 mg/dL 08/21/2018 12:10 PM - Reg, Lab Mu Oru In Component Results Component Value Range AND Units Status Performing Lab WBC 18.62 (H) 3.70 - 11.00 k/uL Final MED LAB RBC 5.54 (H) 3.90 - 5.20 m/uL Final MED LAB Hemoglobin 14.4 11.5 - 15.5 g/dL Final MED LAB Hematocrit 45.6 36.0 - 46.0 % Final MED LAB MCV 82.3 80.0 - 100.0 fL Final MED LAB MCH 26.0 26.0 - 34.0 pG Final MED LAB MCHC 31.6 30.5 - 36.0 g/dL Final MED LAB RDW-CV 18.7 (H) 11.5 - 15.0 % Final MED LAB Platelet Count 269 150 - 400 k/uL Final MED LAB MPV 10.9 9.0 - 12.7 fL Final MED LAB Neut% 76 % Final MED LAB Lymph% 8 % Final MED LAB [place]% 16 % Final MED LAB Abs Neut (ANC) 14.15 (H) 1.70 - 7.00 k/uL Final MED LAB Abs Lym 1.49 0.90 - 4.00 K/uL Final MED LAB Abs [place] 2.98 (H) <0.87 k/uL Final MED LAB Anisocytosis Present 08/21/2018 12:07 PM - Reg, Lab Mu Oru In Component Results Component Value Range AND Units Status Performing Lab Protein, Total 7.6 6.3 - 8.0 g/dL Final MED LAB Albumin 4.2 3.9 - 4.9 g/dL Final MED LAB Calcium 9.6 8.5 - 10.2 mg/dL Final MED LAB Bilirubin, Total 0.4 0.2 - 1.3 mg/dL Final MED LAB Alkaline Phosphatase 92 34 - 123 U/L Final MED LAB AST 13 13 - 35 U/L Final MED LAB Glucose 136 (H) 74 - 99 mg/dL Final MED LAB Comment: The [place] [employer] (ADA) provides guidance for cutoff values for fasting glucose and random glucose. The ADA defines fasting as no caloric intake for at least 8 hours. Fasting plasma glucose results between 100 to 125 ?mg/dL indicate increased risk for diabetes (prediabetes). Fasting plasma glucose results greater than or equal to 126 mg/dL meet the criteria for diagnosis of diabetes. In the absence of unequivocal hyperglycemia, results should be confirmed by repeat testing. In a patient with classic symptoms of hyperglycemia or hyperglycemic crisis, random plasma glucose results greater than or equal to 200 mg/dL meet the criteria for diagnosis of diabetes. Reference: Standards of Medical Care in Diabetes 2016, [place] [employer]. Diabetes Care. 2016.39(Suppl 1). BUN 21 7 - 21 mg/dL Final MED LAB Creatinine 0.68 0.58 - 0.96 mg/dL Final MED LAB Sodium 139 136 - 144 mmol/L Final MED LAB Potassium 3.8 3.7 - 5.1 mmol/L Final MED LAB Chloride 100 97 - 105 mmol/L Final MED LAB CO2 25 22 - 30 mmol/L Final MED LAB Anion Gap 14 9 - 18 mmol/L Final MED LAB ALT 11 7 - 38 U/L Final MED LAB eGFR- >60 Final MED LAB eGFR-All Other Races >60 . Final MED LAB Comment: Assessment/Plan Active Problems: Left wrist pain POA: Unknown Assessment AND Plan: Likely secondary to exacerbation of arthritis. Ortho consulted for further recs, may need aspiration if enough fluid to rule out septic joint. Follow up on blood cultures. Continue vancomycin and ceftriaxone for now. Monitor for fevers Urinary tract infection without hematuria POA: Unknown Assessment AND Plan: follow up urine cultures. Continue ceftriaxone Bandemia POA: Unknown Assessment AND Plan: secondary to 1 and 2. Monitor for now. Essential hypertension POA: Unknown Assessment AND Plan: restart home medications. Urge incontinence of urine POA: Unknown Assessment AND Plan: follows up with urology as outpatient. Continue home myrbetriq Primary osteoarthritis of both knees POA: Unknown Assessment AND Plan: wheel chair bound. Pt/Ot to evaluate. Debility POA: Unknown Assessment AND Plan: wheel chair bound. Pt/Ot recs Resolved Problems: * No resolved hospital problems. * Medication and Non-Pharmacologic VTE Prophylaxis/Anticoagulants VTE Prophylaxis: VTE prophylaxis appropriate SIGNATURE: Shannon Sellers MD PATIENT NAME: Shola Castaneda DATE: August 21, 2018 TIME: 1:33 PM PAGER/CONTACT #: [phone] URINALYSIS Collected: 08/21/2018 Status: F Source: [place] 12:00 PM CLINIC OTHER CAMPUS REPOSITORY TYPE CODE TESTS RESULT OUT OF RANGE REFERENCE UNITS LAB UCOL Yellow Color Yellow LAB [facility] Clear Clarity Clear LAB UGLUC Negative mg/dL Glucose, Urine Negative LAB UBIL Negative Bilirubin, Urine Negative LAB UKET Negative Ketones, Urine Negative LAB USPG 1.001-1.029 Specific [place], Ur 1.010 LAB UHGB Negative Abnormal Hemoglobin/Blood, Trace Alert Ur LAB UPH 5.0-8.0 pH 6.0 LAB UPROT Negative mg/dL Protein, Abnormal Urine Trace Alert LAB UUROB 0.2-1.0 Urobilinogen 0.2 LAB UNITR Negative Nitrites Abnormal Positive Alert LAB ULKEST Negative Leukest Abnormal Trace Alert Performed By: #### UA, UAMIC #### [facility] [address] [place] [address] URINE MICROSCOPIC Collected: 08/21/2018 Status: F Source: [place] (FOR LAB USE ONLY) 12:00 PM [facility] OTHER CAMPUS REPOSITORY TYPE CODE TESTS RESULT OUT OF REFERENCE UNITS RANGE LAB UWBC 0-5 /HPF WBC 0-5 LAB URBC 0-3 /HPF RBC 0-3 LAB UCAST 0 /LPF Cast SEE COMMENT Result Comment: 0 LAB UBACT 0 /HPF Abnormal Bacteria Alert Moderate LAB UEPI /HPF Epithelial SEE Cells COMMENT Result Comment: 0-5 Squamous Epithelial Cells LAB UCRYS 0 /HPF Abnormal Alert Crystals SEE COMMENT Result Comment: Moderate Amorphous Performed By: #### UA, UAMIC #### [facility] [address] [facility] [phone] Observed: 08/21/2018 Status: F Source: [place] URINE CULTURE 12:00 PM [facility] REPOSITORY Sp. Request/Comment: - Specimen received in preservative Culture Result - 50,000 - <100,000 CFU/ml Normal urogenital carol ann Performed By: #### URCUL #### [facility] [address] [facility] [phone] [facility] [address] [place] [address] COMP METABOLIC PANEL Collected: 08/21/2018 Status: F Source: [place] 11:30 AM [facility] OTHER CAMPUS REPOSITORY TYPE CODE TESTS RESULT OUT OF REFERENCE UNITS RANGE LAB TP 6.3-8.0 g/dL Protein, Total 7.6 LAB ALB 3.9-4.9 g/dL Albumin 4.2 LAB CA 8.5-10.2 mg/dL Calcium, Total 9.6 LAB TBIL 0.2-1.3 mg/dL Bilirubin, Total 0.4 LAB ALKP 34-123 U/L Alkaline Phosphatase 92 LAB AST 13-35 U/L AST 13 LAB GLU 74-99 mg/dL Glucose High 136 Result Comment: The [place] [employer] (ADA) provides guidance for cutoff values for fasting glucose and random glucose. The ADA defines fasting as no caloric intake for at least 8 hours. Fas ting plasma glucose results between 100 to 125 mg/dL indicate increased risk for diabetes (prediabetes). Fasting plasma glucose results greater than or equal to 126 mg/dL meet the criteria for diagnosis of diabetes. In the absence of unequivocal hyperglycemia, results should be confirmed by repeat testing. In a patient with classic symptoms of hyperglycemia or hyperglycemic crisis, random plasma glucose results greater than or equal to 200 mg/dL meet the criteria for diagnosis of diabetes. Reference: Standards of Medical Care in Diabetes 2016, [place] [employer] Association. Diabetes Care. 2016.39(Suppl 1). LAB BUN 7-21 mg/dL BUN 21 LAB CRET 0.58-0.96 mg/dL Creatinine 0.68 LAB NA 136-144 mmol/L Sodium 139 LAB K 3.7-5.1 mmol/L Potassium 3.8 LAB CL 97-105 mmol/L Chloride 100 LAB CO2 22-30 mmol/L CO2 25 LAB AGAP 9-18 mmol/L Anion Gap 14 LAB ALT 7-38 U/L ALT 11 LAB GFRAA eGFR- Amer. >60 LAB GFRNAA . eGFR-All Other Races >60 Result Comment: eGFR (Estimated GFR) Units of measure: mL/min/1.73 meters squared eGFR is derived from the reexpressed MDRD Study equation using the following parameters: serum creatinine, age, gender and race. The creatinine assay has been calibrated to be traceable to IDMS. An eGFR <60 mL/min/1.73m2 for >3 months is consistent with chronic kidney disease. Refer to KDOQI guidelines for clinical interpretation. In patients with unstable renal function, e.g. those with acute kidney injury, the eGFR may not accurately reflect actual GFR. Performed By: #### CMP, CRP, URIC, CBCDIF #### [facility] [address] [place] [address] #### WSR #### [place] [address] C-REACTIVE PROTEIN Collected: 08/21/2018 Status: F Source: [place] 11:30 AM [facility] OTHER CAMPUS REPOSITORY TYPE CODE TESTS RESULT OUT OF REFERENCE UNITS RANGE LAB CRP <0.9 mg/dL High C-Reactive 1.8 Protein Performed By: #### CMP, CRP, URIC, CBCDIF #### [facility] [address] [place] [address] #### WSR #### [facility] [address] [place] [address] URIC ACID Collected: 08/21/2018 Status: F Source: [place] 11:30 AM [facility] OTHER CAMPUS REPOSITORY TYPE CODE TESTS RESULT OUT OF RANGE REFERENCE UNITS LAB URIC 2.5-6.6 mg/dL Uric Acid 6.4 Performed By: #### CMP, CRP, URIC, CBCDIF #### [facility] [address] [place] [address] #### WSR #### [facility] [address] [place] [address] CBC AND DIFFERENTIAL Collected: 08/21/2018 Status: F Source: [place] 11:30 AM [facility] OTHER CAMPUS REPOSITORY TYPE CODE TESTS RESULT OUT OF REFERENCE UNITS RANGE LAB WBC 3.70-11.00 k/uL WBC High 18.62 LAB RBC 3.90-5.20 m/uL RBC High 5.54 LAB HGB 11.5-15.5 g/dL Hemoglobin 14.4 LAB HCT 36.0-46.0 % Hematocrit 45.6 LAB MCV 80.0-100.0 fL MCV 82.3 LAB MCH 26.0-34.0 pG MCH 26.0 LAB MCHC 30.5-36.0 g/dL MCHC 31.6 LAB RDWCV 11.5-15.0 % RDW-CV High 18.7 LAB PLTCT 150-400 k/uL Platelet Count 269 LAB MPV 9.0-12.7 fL MPV 10.9 LAB NEUT % Neut% 76 LAB ALYMP % Lymph% 8 LAB AMONO % [place]% 16 LAB ABNEUT 1.70-7.00 k/uL Abs Neut High 14.15 LAB ABLYM 0.90-4.00 K/uL Abs Lym 1.49 LAB ABMONO <0.87 k/uL Abs [place] High 2.98 LAB ANIIMI Anisocytosis Present LAB PLTEST Platelet Estimate Platelet estimate adequate Performed By: #### CMP, CRP, URIC, CBCDIF #### [facility] [address] [place] [address] #### WSR #### [facility] [address] [place] [address] SED RATE WESTERGREN Collected: 08/21/2018 Status: F Source: [place] 11:30 AM [facility] OTHER [place] REPOSITORY TYPE CODE TESTS RESULT OUT OF REFERENCE UNITS RANGE LAB WSR 0-20 mm/hr Sed Rate Westergren 9 Performed By: #### CMP, CRP, URIC, CBCDIF #### [facility] [address] [facility] [phone] #### WSR #### [facility] [address] [place] [address] PHOSPHORUS Collected: 08/21/2018 Status: F Source: [place] 11:30 AM [facility] OTHER CAMPUS REPOSITORY TYPE CODE TESTS RESULT OUT OF REFERENCE UNITS RANGE LAB PHOS 2.7-4.8 mg/dL Phosphorus 2.9 Performed By: #### PHOS #### [facility] [address] [facility] [phone] XR WRIST 4V Observed: 08/21/2018 Status: F Source: [place] PA/LAT/OBL/SCAPH LT 11:14 AM [facility] OTHER CAMPUS REPOSITORY * * *Final Report* * * DATE OF EXAM: Aug 21 2018 11:14AM MDX [id number] - XR WRIST 4V PA/LAT/OBL/SCAPH LT / PROCEDURE REASON: Fracture, wrist * * * * Physician Interpretation * * * * History: Evaluate for fracture FINDINGS: 4 views of the left wrist have been obtained. No definite acute fractures seen. There is marked degenerative change of the first carpal metacarpal joint space. There is mild narrowing of the radiocarpal joint with subchondral cysts seen in the distal radius. Small subchondral cysts are also noted within the carpal bones to include the scaphoid, lunate, and capitate. No gross soft tissue abnormality is seen. IMPRESSION: Degenerative changes with no acute process seen. Director College: [employer] Transcribe Date/Time: Aug 21 2018 11:30A Dictated by : ANNETTE GALVAN MD This examination was interpreted and the report reviewed and electronically signed by: ANNETTE GALVAN MD on Aug 21 2018 11:31AM EST [id number] ED PROV NOTE Observed: 08/21/2018 Status: COMPLETED Source: [place] 10:49 AM [facility] OTHER CAMPUS REPOSITORY HNO ID: [id number] Author: Viktoriya Fernandez MD Service: Emergency Medicine Author Type: Physician Type: ED Provider Notes Filed: 08/21/2018 4:19 PM Note Text: ED Provider Note Patient Name: Shola Castaneda SERVICE DATE: 9/26/18 History Patient presents with: Wrist Pain: LEFT wrist hand pain/ swelling 78 year old female with a past medical history of hypertension, who is wheelchair-bound, presents to the emergency department today via EMS with a chief complaint of left wrist pain times one day. Patient stated that she woke up this morning trying to go to bathroom when she started noticing left wrist pain. She denies any trauma or injury to the area. She noticed the left wrist was swollen and tender to touch. She denies any fever or chills, denies any history of gout. She denies any other complaints. PAST MEDICAL HISTORY Diagnosis Date - Arthritis - Arthropathy - Asthma - Bladder neoplasm of uncertain malignant potential - Dysuria - Hypertension - IC (interstitial cystitis) - Nocturia - Urge incontinence - Urgency of urination - Urinary incontinence - UTI (urinary tract infection) PAST SURGICAL HISTORY Procedure Laterality Date - BLADDER SURGERY HX - HYSTERECTOMY HX - ROTATOR CUFF REPAIR Right FAMILY HISTORY Problem Relation Age of Onset - Allergies Mother - Hypertension Mother - Cancer Father - Breast Cancer Sister - Heart Other - Heart Other Social History Social History Main Topics - Smoking status: Former Smoker Quit date: 2008 - Smokeless tobacco: Never Used - Alcohol use No - Drug use: No - Sexual activity: Not on file ALLERGIES Allergen Reactions - Latex Unknown Review of Systems Constitutional: Negative for chills and fever. HENT: Negative for congestion and sore throat. Eyes: Negative for photophobia and visual disturbance. Respiratory: Negative for chest tightness, shortness of breath and wheezing. Cardiovascular: Negative for chest pain and palpitations. Gastrointestinal: Negative for abdominal pain and blood in stool. Genitourinary: Negative for dysuria and hematuria. Musculoskeletal: Positive for arthralgias, joint swelling and myalgias. Negative for neck pain and neck stiffness. Skin: Negative for color change. Neurological: Negative for dizziness and headaches. Psychiatric/Behavioral: Negative for agitation and confusion. Physical Exam BP 200/93[pt has not taken BP meds for 6 months [ Pulse 93 Temp 98.7 Resp 20 Ht 5' 4 (1.63m) Wt 200 lb (90.7kg) SpO2 99% BMI 34.31 kg/(m2). Physical Exam Constitutional: She is oriented to person, place, and time. She appears well-developed and well-nourished. HENT: Head: Normocephalic and atraumatic. Eyes: Conjunctivae and EOM are normal. Neck: Normal range of motion. Neck supple. Cardiovascular: Normal rate and regular rhythm. Pulmonary/Chest: Effort normal and breath sounds normal. No respiratory distress. She has no wheezes. Abdominal: Soft. Bowel sounds are normal. Musculoskeletal: She exhibits edema and tenderness. She exhibits no deformity. Right shoulder: Normal. Left shoulder: Normal. Right elbow: Normal. Left elbow: Normal. Right wrist: Normal. Left wrist: She exhibits decreased range of motion, tenderness, bony tenderness and swelling. She exhibits no effusion, no crepitus, no deformity and no laceration. Right upper arm: Normal. Left upper arm: Normal. Right forearm: Normal. Left forearm: Normal. Arms: Right hand: Normal. Left hand: Normal. ttp over the dorsal aspect of the left wrist with minimal swelling, redness and warmth to it. Radial and ulnar pulse intact, cap refill 2 plus. Limited range Of motion due to pain and swelling . Neurological: She is alert and oriented to person, place, and time. Skin: Skin is warm and dry. Psychiatric: She has a normal mood and affect. Her behavior is normal. Diagnostic Testing ED Labs Ordered and Reviewed - No data to display XR WRIST INJURY 4V PA/LAT/OBL/SCAPH LT Final Result IMPRESSION: Degenerative changes with no acute process seen. Director College: [employer] Transcribe Date/Time: Aug 21 2018 11:30A Dictated by : ANNETTE GALVAN MD This examination was interpreted and the report reviewed and electronically signed by: ANNETTE GALVAN MD on Aug 21 2018 11:31AM EST Results for orders placed or performed during the hospital encounter of 08/21/18 COMP METABOLIC PANEL Result Value Ref Range Protein, Total 7.6 6.3 - 8.0 g/dL Albumin 4.2 3.9 - 4.9 g/dL Calcium 9.6 8.5 - 10.2 mg/dL Bilirubin, Total 0.4 0.2 - 1.3 mg/dL Alkaline Phosphatase 92 34 - 123 U/L AST 13 13 - 35 U/L Glucose 136 (H) 74 - 99 mg/dL BUN 21 7 - 21 mg/dL Creatinine 0.68 0.58 - 0.96 mg/dL Sodium 139 136 - 144 mmol/L Potassium 3.8 3.7 - 5.1 mmol/L Chloride 100 97 - 105 mmol/L CO2 25 22 - 30 mmol/L Anion Gap 14 9 - 18 mmol/L ALT 11 7 - 38 U/L eGFR- >60 eGFR-All Other Races >60 . CBC + DIFF Result Value Ref Range WBC 18.62 (H) 3.70 - 11.00 k/uL RBC 5.54 (H) 3.90 - 5.20 m/uL Hemoglobin 14.4 11.5 - 15.5 g/dL Hematocrit 45.6 36.0 - 46.0 % MCV 82.3 80.0 - 100.0 fL MCH 26.0 26.0 - 34.0 pG MCHC 31.6 30.5 - 36.0 g/dL RDW-CV 18.7 (H) 11.5 - 15.0 % Platelet Count 269 150 - 400 k/uL MPV 10.9 9.0 - 12.7 fL Neut% 76 % Lymph% 8 % [place]% 16 % Abs Neut (ANC) 14.15 (H) 1.70 - 7.00 k/uL Abs Lym 1.49 0.90 - 4.00 K/uL Abs [place] 2.98 (H) <0.87 k/uL Anisocytosis Present Platelet Estimate Platelet estimate adequate C-REACTIVE PROTEIN (CRP) Result Value Ref Range CRP 1.8 (H) <0.9 mg/dL URIC ACID BLOOD Result Value Ref Range Uric Acid 6.4 2.5 - 6.6 mg/dL URINALYSIS Result Value Ref Range Color Yellow Yellow Appearance (U) Clear Clear Glucose, Urine Negative Negative mg/dL Bilirubin, Urine Negative Negative Ketones, Urine Negative Negative Specific [place], Ur 1.010 1.001 - 1.029 Hemoglobin/Blood,Ur Trace (A) Negative pH, Urine 6.0 5.0 - 8.0 Protein, Urine Trace (A) Negative mg/dL Urobilinogen 0.2 0.2 - 1.0 Nitrites Positive (A) Negative Leukest Trace (A) Negative URINE MICROSCOPIC Result Value Ref Range WBC, Urine 0-5 0 - 5 /HPF RBC, Urine 0-3 0 - 3 /HPF Cast SEE COMMENT 0 /LPF Bacteria Moderate (A) 0 /HPF Epithelial Cells SEE COMMENT /HPF Crystal SEE COMMENT (A) 0 /HPF Procedures ED Course / Clinical Impression Clinical Impressions as of Aug 21 1249 Left wrist pain Unable to perform basic transfer without assistance Acute cystitis without hematuria Cellulitis of left upper extremity MDM / Disposition / Plan The medical record is reviewed.Triage note is reviewed and incorporated. The nursing note is reviewed and consistent with patient's history and physical exam findings. The vital signs were reviewed the the vital signs are : BP 200/93 Pulse (!) 93 Temp 37.1 ?C (98.7 ?F) Resp 20 Ht 162.6 cm (5' 4) Wt 90.7 kg (200 lb) SpO2 99% BMI 34.33 kg/m? XR directly visualized and independently interpreted by me as well as Radiologist showed: no acute process MDM: This is a well-appearing female with a pmh of htn who presents to the ED with a chief complaint of left wrist pain and swelling who is, afebrile , hemodynamically stable, in no acute distress patient whose symptoms are controlled in the ED with morphine, rocephin and vanco . Based on patient's pmh, chief complaint and physical exam findings, differential diagnoses include gout vs cellulitis, vs septic joint, vs fx/dislocation. Labs and imaging studies reveal crp of 1.8, cbc with wbc of 18.6 , uric acid within normal limits cmp within normal limits ua with positive nitrites and leukest At this time, based on the patient's history, physical exam findings, lab results and clinical picture , the most likely diagnosis is uti, left wrist pain The attending who evaluated and managed this patient was Dr. Fernandez. Labs, physical exam as well as imaging findings and plan for continuity of care was discussed with Dr. Peralta who will be consulted. Labs, physical exam as well as imaging findings and plan for continuity of care was discussed with Dr. Sellers who will admit. This note was partially generated using [employer] voice recognition system, and there may be some incorrect words, spellings, and punctuation that were not noted in checking the note before saving SIGNATURE: DANIEL Mueller (Pa) 08/21/18 3812 Attending Note I have personally performed a face to face assessment of the patient and have reviewed the PA/NECKTIES PAINTER note. My jose findings include: History is patient is an 78-year-old female coming in with left wrist pain. Patient is from home is mainly in a wheelchair and helped by daughter at home. Denies any injury but her left wrist started hurting this morning. Denies any fevers. She denies any fevers or chills denies any gout. Exam is female sitting in the bed in no acute distress heart is regular lungs are clear and equal bilaterally abdomen is soft nontender. The left wrist has some mild erythema and swelling diffuse tenderness. No obvious cellulitis Assessment/Plan are patient had basic labs urinalysis is positive for urine infection. X-ray shows no acute fracture. Patient was started on Rocephin and vancomycin. Uric acid is negative although unclear the etiology of the left wrist pain. Other additions or changes: None Signature: Viktoriya Fernandez MD Date: 08/21/2018 Time: 4:13 PM Viktoriya Fernandez MD 08/21/18 1619 ED NOTE Observed: 08/21/2018 Status: COMPLETED Source: [place] 10:41 AM [facility] OTHER [place] REPOSITORY HNO ID: [id number] Author: Jen ([facility]) HIRAL Wilson Service: (none) Author Type: Health Archival Records Clerk Type: ED Notes Filed: 08/21/2018 10:41 AM Note Text: Bed: ED-11 Expected date: Expected time: Means of arrival: Comments: GEMMA OBSOLETJamin Observed: 05/15/2018 Status: COMPLETED Source: [place] 12:00 AM [facility] OTHER [place] REPOSITORY Refill (UROLAE) SHOLA CASTANEDA ([id number]) 1940 F Date Time Provider Department 05/15/18 VIKTORIYA REYNOLDS ([facility]) UROCRISTI During your visit today, we recorded the following information about you: Allergies As of Date: 05/15/2018 Noted Allergy Reaction LATEX 08/14/2017 16 - Unknown Date Reviewed: 08/15/2017 Reviewed by: Tasia Garza CMA - Fully Assessed Reason for Visit: Refill Request [94] Order(s):MYRBETRIQ 50 mg [id number] 1 TABLET BY MOUTH EVERY DAYDisp: 30 tabletRfl: 0 Prescriptions as of 05/15/2018 Sig: MYRBETRIQ 50 MG TABLET,EXTEND* TAKE 1 TABLET BY MOUTH EVERY * ACETAMINOPHEN 500 MG TABLET Take 1,000 mg by mouth. AMLODIPINE 5 MG TABLET Take 5 mg by mouth. FLUTICASONE 50 MCG/ACTUATION * Use in the nose. IBUPROFEN 400 MG TABLET Take 400 mg by mouth. OMEPRAZOLE 20 MG CAPSULE,KAIDEN* Take 20 mg by mouth. TRAMADOL 50 MG TABLET Take 50 mg by mouth. PANTOPRAZOLE 40 MG TABLET,DEL* Take 40 mg by mouth. LISINOPRIL 20 MG TABLET Take 20 mg by mouth. TRAZODONE 50 MG TABLET Take 50 mg by mouth. MELATONIN 3 MG TABLET Take 3 mg by mouth. MIRABEGRON ER 25 MG TABLET,EX* Take 25 mg by mouth. AMOXICILLIN 500 MG CAPSULE Take 1 capsule by mouth three* MELATONIN 3 MG TABLET MYRBETRIQ 50 MG TABLET,EXTEND* Problem List As Of Date: 05/15/2018 (None) Prescriptions ordered this encounter Disp Refills Start End MYRBETRIQ 50 MG TABLET,EXTENDED RELE* 30 t* 0 05/15/2018 Sig: TAKE 1 TABLET BY MOUTH EVERY DAY Medications Discontinued During This Encounter mirabegron (MYRBETRIQ) 50 mg Tb24 30 t* 0 03/04/2018 05/15/2018 Route: ORAL Sig: Take 1 tablet by mouth once daily. Disc: Reason for discontinue is not on file. Encounter Status:Closed by VIKTORIYA REYNOLDS on 05/15/18 EMMANUEL Observed: 03/04/2018 Status: COMPLETED Source: [place] 12:00 AM [facility]IN[facility] OTHER CAMPUS REPOSITORY Telephone (YAMILET) SHOLA CASTANEDA ([id number]) 1940 F Date Time Provider Department 03/04/18 VIKTORIYA REYNOLDS ([facility]) YAMILET During your visit today, we recorded the following information about you: Jayashree Doyle 03/04/2018 9:51 AM Signed Patient has [employer] insurance and will be making an appointment with a different office. They are afraid she will run out of her Myrbetriq 50mg before she is able to get in. Would you be able to refill this for one more month? Please advise, thank you. Jayashree Gallagher Clerk Viktoriya Reynolds APRN.EDITH 03/04/2018 12:53 PM Signed The following approved medication requests have been transmitted electronically. Signed Prescriptions Disp Refills mirabegron (MYRBETRIQ) 50 mg Tb24 30 tablet 0 Sig: Take 1 tablet by mouth once daily. Authorizing Provider: VIKTORIYA REYNOLDS ([facility]) ISELA Dang APRN.CNP 03/04/2018 12:53 PM Signed Addended by: VIKTORIYA REYNOLDS on: 03/04/2018 12:53 PM Modules accepted: Orders Tasia Garza CMA 03/04/2018 12:59 PM Signed Left message to call office to advise patient of below. Tasia Stokes [facility] 03/06/2018 2:21 PM Signed Lm to call office to inform of message below Tasia Garza CMA 03/07/2018 11:33 AM Signed Left message to call office to advise patient of below. Tasia Garza [facility] 03/07/2018 1:19 PM Signed Patient daughter notified. Tasia Garza CMA Allergies As of Date: 03/04/2018 Noted Allergy Reaction LATEX 08/14/2017 16 - Unknown Date Reviewed: 08/15/2017 Reviewed by: Tasia Garza CMA - Fully Assessed Reason for Visit: Prescription Refills [1772] Order(s):mirabegron (MYRBETRIQ) 50 mg [id number] 1 tablet by mouth once daily.Disp: 30 tabletRfl: 0 Prescriptions as of 03/04/2018 Sig: MIRABEGRON ER 50 MG TABLET,EX* Take 1 tablet by mouth once d* ACETAMINOPHEN 500 MG TABLET Take 1,000 mg by mouth. AMLODIPINE 5 MG TABLET Take 5 mg by mouth. FLUTICASONE 50 MCG/ACTUATION * Use in the nose. IBUPROFEN 400 MG TABLET Take 400 mg by mouth. OMEPRAZOLE 20 MG CAPSULE,KAIDEN* Take 20 mg by mouth. TRAMADOL 50 MG TABLET Take 50 mg by mouth. PANTOPRAZOLE 40 MG TABLET,DEL* Take 40 mg by mouth. LISINOPRIL 20 MG TABLET Take 20 mg by mouth. TRAZODONE 50 MG TABLET Take 50 mg by mouth. MELATONIN 3 MG TABLET Take 3 mg by mouth. MIRABEGRON ER 25 MG TABLET,EX* Take 25 mg by mouth. AMOXICILLIN 500 MG CAPSULE Take 1 capsule by mouth three* MELATONIN 3 MG TABLET MYRBETRIQ 50 MG TABLET,EXTEND* Problem List As Of Date: 03/04/2018 (None) Prescriptions ordered this encounter Disp Refills Start End MIRABEGRON ER 50 MG TABLET,EXTENDED * 30 t* 0 03/04/2018 Route: ORAL Sig: Take 1 tablet by mouth once daily. Encounter Status:Closed by JAYASHREE HALE on 03/04/18 ALLERGIES ALLERGIES DATE TYPE / CODE NAME / CODE REACTION SEVERITY SOURCE 08/21/2018 Drug ADHESIVE RASH [facility] Class/56644 Other [place] 1003(SNOMED Repository CT) 08/14/2017 DRUG LATEX UNKNOWN [facility] INGREDI/419 Other [place] 416344(SNOM Repository ED CT) ENCOUNTERS ENCOUNTERS ADMIT/DISCHARGE ACCOUNT ADMITTING ENCOUNTER LOCATION SOURCE NUMBER CLASS 12/18/2018 [id number] Ambulatory [facility] ing:OLS.ACW20 Repository 0 11/07/2018 [id number] Ambulatory [facility] ing:OLS.ACW20 Repository 0 08/21/2018/08/26/20 [id number] ANTONIA, Inpatient [address] Encounter Clinic Other (RES) [place] Repository PAYERS PAYERS ENCOUNTER GUARANTOR PAYER SUBSCRIBER SOURCE 12/18[facility]SELF [facility] GINNA Number: Effective Repository DAVID, Date:2018-12-18 [place] [id number]: () 11/07/2018 Shola Primary Shola [facility]2982 [facility] MEDICAREPolicy [id number] GINNA Number: Repository DAVID, [id number] [address]Tpm: Date:2789-26-49[address], [place] () [address]GH: 11/07/2018 Secondary NOT GIVENUNK [place] Insurance:SELF PAY [facility] Number: Effective Repository Date:2018-11-07
== END ==
LOC: OLS.ACW200 02:00
PROVIDERS: Visit Provider Internal Medicine
DX: L03.114 Cellulitis of left upper limb (principal); M62.81 Muscle weakness (generalized); I10 Essential (primary) hypertension; M15.0 Primary generalized (osteo)arthritis; F33.1 Major depressive disorder, recurrent, moderate
CPT/HCPCS: 81002; 87086; 87088

== ENCOUNTER → 2019-01-17 05:00 | Outpatient (REF) | payer MEDICARE, SELFPAY ==
[2019-01-17 07:39] LABS: Thyroid Stim Hormone (TSH) 0.63 uIU/mL (0.358-3.74)
[2019-01-17 08:08] LABS: Vitamin B12 717 pg/mL (211-911)
== END ==
LOC: OLS.ACW200 05:00
PROVIDERS: Visit Provider Internal Medicine
DX: L03.114 Cellulitis of left upper limb (principal); M62.81 Muscle weakness (generalized); R27.9 Unspecified lack of coordination; I10 Essential (primary) hypertension; M15.0 Primary generalized (osteo)arthritis; F33.1 Major depressive disorder, recurrent, moderate
CPT/HCPCS: 36415; 82607; 84443

== ENCOUNTER → 2019-02-03 21:10 | Outpatient (REF) | payer MEDICARE, SELFPAY ==
[2019-02-03 21:51] LABS: Mucous, Urine 0 SEEN /hpf (<or=2+); Red Blood Cells-Urine 0 SEEN /hpf (0-5)
[2019-02-03 22:00] LABS: Color, Urine Yellow (Yellow); Glucose, Dipstick Normal (Normal); Ketone-Dipstick Negative (Negative); Leukocyte Esterase-Dipstick 500 /ul (Negative); Nitrite-Dipstick Positive (Negative); Occult Blood-Urine 25 /ul (Negative); Protein-Dipstick 15 mg/dl (Negative); Urine Bilirubin Dipstick Negative (Negative); Urine Clarity Sl. Cloudy (Clear); Urine Urobilinogen Normal (Normal)
[2019-02-03 22:02] LABS: Hematocrit 44.4 % (37-47); Hemoglobin 14.5 g/dl (12.0-15.0); Mean Corp Hgb Conc 32.7 g/gl (32-36); Mean Corpuscular Hgb 30.3 pg (27.0-32.0); Mean Corpuscular Volume 92.9 fL (81-99); Mean Platelet Vol. 10.9 fl (6.2-12.0); Platelet Count 211 K/mm3 (150-450); RBC Distribution Width CV 13.2 % (11.6-14.6); RBC Distribution Width SD 44.9 fl (35.1-43.9); Red Blood Count 4.78 M/mm3 (4.2-5.4); Scan Indicated on CBC? Y/N NO; White Blood Count 13.9 K/mm3 (4.4-11.0)
[2019-02-03 22:07] LABS: Bacteria RARE /hpf (None Seen); Squamous Epithelial Cells - UA 5-10 SEEN /hpf (5-10); White Blood Cells 10-25 SEEN /hpf (0-5)
[2019-02-03 22:14] LABS: ALB/GLOB Ratio 0.6 RATIO (0.9-2.4); AST(SGOT) 18 U/L (15-37); Alanine Aminotransfer ALT/SGPT 20 U/L (13-56); Alkaline Phosphatase 117 U/L (45-117); Anion Gap 10 (5-15); BUN 30 mg/dL (7-18); BUN/Creat Ratio 26.5 RATIO (10-20); Calcium,Total 8.9 mg/dL (8.5-10.1); Chloride 97 mmol/L (98-107); Creatinine, Serum 1.13 mg/dL (0.55-1.02); EST Glomerular Filtration Rate 49 mL/min (>60); Est Glom Filt Rate - Afr Amer 60 mL/min (>60); Globulin 4.7 g/dL (2.2-4.2); Glucose 104 mg/dL (74-106); Potassium 3.6 mmol/L (3.5-5.1); Protein, Total 7.7 g/dL (6.4-8.2); Sodium Level 130 mmol/L (136-145)
== END ==
LOC: OLS.ACW200 21:10
PROVIDERS: Visit Provider Internal Medicine
DX: L03.114 Cellulitis of left upper limb (principal); M62.81 Muscle weakness (generalized); R27.9 Unspecified lack of coordination; I10 Essential (primary) hypertension; M15.0 Primary generalized (osteo)arthritis; F33.1 Major depressive disorder, recurrent, moderate
CPT/HCPCS: 36415; 80053; 81001; 85027; 87040; 87077; 87086; 87088; 87186

== ENCOUNTER → 2019-03-13 | Outpatient (REF) | payer MEDICARE, SELFPAY ==
[2019-03-13 09:59] LABS: Uric Acid 4.7 mg/dL (2.6-6.0)
== END | disposition home or self-care (01) ==
LOC: OLS.ACW200 05:00
PROVIDERS: Visit Provider Internal Medicine
DX: A41.9 Sepsis, unspecified organism (principal); R27.9 Unspecified lack of coordination; M62.81 Muscle weakness (generalized); Z74.09 Other reduced mobility; I10 Essential (primary) hypertension; N39.0 Urinary tract infection, site not specified
CPT/HCPCS: 36415; 84550

== ENCOUNTER → 2019-03-28 | Outpatient (REF) | payer MEDICARE, SELFPAY ==
[2019-03-28 09:42] LABS: Color, Urine Yellow (Yellow); Glucose, Dipstick Normal (Normal); Ketone-Dipstick Negative (Negative); Leukocyte Esterase-Dipstick 500 /ul (Negative); Nitrite-Dipstick Negative (Negative); Occult Blood-Urine 25 /ul (Negative); Protein-Dipstick 30 mg/dl (Negative); Urine Bilirubin Dipstick Negative (Negative); Urine Clarity Sl. Cloudy (Clear); Urine Urobilinogen Normal (Normal)
== END | disposition home or self-care (01) ==
LOC: OLS.ACW100 02:00
PROVIDERS: Visit Provider Internal Medicine
DX: A41.9 Sepsis, unspecified organism (principal); R27.9 Unspecified lack of coordination; M62.81 Muscle weakness (generalized); Z74.09 Other reduced mobility; N39.0 Urinary tract infection, site not specified; I10 Essential (primary) hypertension
CPT/HCPCS: 81002; 87086; 87088

== ENCOUNTER → 2019-05-22 | Outpatient (REF) | payer MEDICARE, SELFPAY ==
[2019-05-26 11:19] LABS: KEPPRA (LEVETIRACETAM) 14.7 ug/mL (10.0-40.0)
== END | disposition home or self-care (01) ==
LOC: OLS.ACW200 05:00
PROVIDERS: Visit Provider Internal Medicine
DX: A41.9 Sepsis, unspecified organism (principal); R27.9 Unspecified lack of coordination; M62.81 Muscle weakness (generalized); Z74.09 Other reduced mobility; N39.0 Urinary tract infection, site not specified; I10 Essential (primary) hypertension
CPT/HCPCS: 36415; 80177